=== PATIENT | female | born 1975 | race Caucasian/White ===

== ENCOUNTER 2016-12-20 16:15 | Emergency (ER) | payer BC ==
[~2016-12-20] VITALS: Ht 152.4 cm; Wt 95.8 kg
[~2016-12-20 16:15] MED LIST: CANA1TAB3 PO; GABA-113 PO; GLCSR10 PO; LEVO50TA6 PO; LSN25 PO; METF-384 PO; MULT1TAB79 PO; OMEP20CA9 PO; PRVC/20 PO
[2016-12-20 16:24] VITALS: TEMP 37.5; Ht 152.4 cm; Wt 95.8 kg
[2016-12-20] MEDS ORDERED: REPA1TAB42 PO (17:27)
[2016-12-20] MEDS ORDERED: DULO1CAP39 PO (17:28)
[2016-12-20] MEDS ORDERED: KETOROLAC TROMETHAMINE 30 MG/ML VIAL IV STA (17:42)
[2016-12-20] MEDS ORDERED: ONDANSETRON INJ 2 MG/ML 2 ML VIAL IV STA (17:42)
[2016-12-20] MEDS ORDERED: SODIUM CHLORIDE 0.9% 1000ML 2,000 ML IV STA (17:42)
[2016-12-20] MEDS ORDERED: ALBUTEROL 0.083% NEBU SOLN 3 ML VIAL INH STA (17:54)
--- NOTE | 2016-12-20 18:12 | DIAGNOSTIC IMAGING REPORT ---
CHEST ONE VIEW PORTABLE CLINICAL HISTORY: cough COMPARISON STUDY: 08/26/2016 FINDINGS: The bones soft tissues and hemidiaphragms are normal. The cardiomediastinal silhouette is normal. The lungs are clear. The pulmonary vasculature is normal. IMPRESSION: Negative chest. Electronically signed by: Chuck Nicole M.D. 12/20/2016 6:10 PM Dictated Date/Time: 12/20/2016 6:10 PM
[2016-12-20 18:34] LABS: BASO % 0.3 %; BASO ABS # 0.03 K/uL (0-0.2); COMPLETE YES; EOS % 0.1 %; HEMATOCRIT 34.1 % (37-47); IG% 0.3 %; LYMPH % 19.4 %; LYMPH ABS # 2.07 K/uL (1.2-3.4); MEAN CORPUSCULAR HEMOGLOBIN 29.8 pg (25-34); MEAN CORPUSCULAR HGB CONC 33.4 g/dl (32-36); MEAN PLATELET VOLUME 10.4 fL (7.4-10.4); MONO % 9.7 %; NEUT % 70.2 %; PLATELET COUNT 271 K/uL (130-400); RED BLOOD COUNT 3.83 M/uL (4.2-5.4); WHITE BLOOD COUNT 10.69 K/uL (4.8-10.8)
[2016-12-20 18:53] LABS: BUN/CREATININE RATIO 11.9 (10-20); CALCIUM 8.7 mg/dl (8.5-10.1); CREATININE 0.69 mg/dl (0.60-1.20); POTASSIUM 3.5 mmol/L (3.5-5.1)
[2016-12-20] MEDS ORDERED: DEXAMETHASONE SOD INJ 10 MG/ML VIAL IV ONE (19:30)
--- NOTE | 2016-12-20 20:05 | DIAGNOSTIC IMAGING REPORT ---
SOFT TISSUE NECK TECHNIQUE: AP and lateral soft tissue neck FINDINGS: Mild prominence the adenoids. Hypopharynx is unremarkable. The epiglottis is normal. IMPRESSION: Mild prominence the adenoids. Otherwise negative exam Electronically signed by: Chuck Nicole M.D. 12/20/2016 8:04 PM Dictated Date/Time: 12/20/2016 8:03 PM
[2016-12-20] MEDS ORDERED: AMOXICILLIN/CLAVULANATE TAB 875 MG TAB PO ONE (20:15)
[2016-12-20] MEDS ORDERED: PRED20TA PO (20:17)
[2016-12-20] MEDS ORDERED: AMOX875T PO (20:17)
--- NOTE | 2016-12-20 20:35 | EMERGENCY ROOM VISIT NOTE ---
History Report prepared by Arianna: Fatoumata Cervantes Under the Supervision of: Dr. Sarbjit Lombardi D.O. First contact with patient: 17:29 Chief Complaint: FLU LIKE SX Stated Complaint: FEVER, CHILLS, ACHES, SWOLLEN THROAT, MUCUS, SOB History of Present Illness The patient is a 41 year old female who presents to the Emergency Room with complaints of persistent fever starting a couple days ago. Yesterday, she developed a stuffy nose and congestion. She reports she shivered all night and then soon afterwards began to feel too hot. She is experiencing body aches, rhinorrhea, and sore throat. She notices that her uvula is swollen. She denies any abdominal pain, cough or dysuria. She has recently been in contact with a coworker with bronchitis. She denies any history of asthma, COPD, or smoking. She denies any trouble breathing currently. 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 Source of History: patient Onset: couple days ago Position: other (global) Quality: other (fever) Timing: other (persistent) Associated Symptoms: + chills, + sorethroat, No abdominal pain, No cough, No urinary symptoms Note: Pt reports stuffy nose, congestion, body aches, rhinorrhea. Review of Systems See HPI for pertinent positives & negatives. A total of 10 systems reviewed and were otherwise negative. Past Medical & Surgical Medical Problems: (1) Bronchitis (2) History of - tubal ligation (3) Hypercholesteremia (4) Hypertension (5) Hypothyroidism (6) Type 2 diabetes mellitus (7) Wrist fracture Family History Diabetes mellitus Heart disease Hypertension Kidney disease Kidney stones Social History Smoking Status: Never Smoker Alcohol Use: none Drug Use: none Marital Status: single Housing Status: lives with family Occupation Status: employed Current/Historical Medications Scheduled Amoxicillin & Pot Clavulanate (Augmentin 875-125 mg), 875 MG PO BID Duloxetine HCl (Duloxetine HCl), 1 CAP PO DAILY Gabapentin (Neurontin), 900 MG PO TID Glipizide (Glipizide ER), 10 MG PO DAILY Levothyroxine Sodium (Levothyroxine Sodium), 50 MCG PO DAILY Lisinopril (Lisinopril), 2.5 MG PO DAILY Metformin Hcl (Glucophage), 1,000 MG PO BID Multiple Vitamins W/ Minerals (Womens Daily Formula), 1 TABLET PO DAILY Omeprazole (Prilosec), 20 MG PO BID Pravastatin Sod (Pravastatin Sodium), 20 MG PO QPM Prednisone (Prednisone), 1 TAB PO DAILY Repaglinide (Prandin), 1 MG PO AC Allergies Coded Allergies: No Known Allergies (Unverified , 12/20/16) Physical Exam Vital Signs Date Time Temp Pulse Resp B/P Pulse Ox O2 Delivery O2 Flow Rate FiO2 12/20/16 18:11 104 20 109/75 94 Room Air 12/20/16 16:24 37.5 121 19 145/88 95 Room Air Physical Exam GENERAL: Sitting up, disheveled, no distress, non-toxic EYE EXAM: normal conjunctiva, PERRL and EOM's grossly intact EAR: TMs clear bilaterally. OROPHARYNX: erythema of posterior pharynx, no submandibular swelling, tonsils absent, uvula midline. NECK: supple, no nuchal rigidity, no adenopathy, non-tender. No stridor. LUNGS: Clear to auscultation. Normal chest wall mechanics, sonorous breathing mostly when sleeping. HEART: no murmurs, S1 normal and S2 normal ABDOMEN: abdomen soft, non-tender, normo-active bowel sounds, no masses, no rebound or guarding. BACK: Back is symmetrical on inspection and there is no deformity, no midline tenderness, no CVA tenderness. SKIN: no rashes and no bruising UPPER EXTREMITIES: upper extremities are grossly normal. LOWER EXTREMITIES: No pitting edema. NEURO EXAM: Normal sensorium, cranial nerves II-XII grossly intact, normal speech, no gross weakness of arms, no gross weakness of legs. Medical Decision & Procedures ER Provider Diagnostic Interpretation: Xray results per the radiologist and my interpretation. SOFT TISSUE NECK TECHNIQUE: AP and lateral soft tissue neck FINDINGS: Mild prominence the adenoids. Hypopharynx is unremarkable. The epiglottis is normal. IMPRESSION: Mild prominence the adenoids. Otherwise negative exam Electronically signed by: Chuck Nicole M.D. 12/20/2016 8:04 PM Dictated Date/Time: 12/20/2016 8:03 PM CHEST ONE VIEW PORTABLE CLINICAL HISTORY: cough COMPARISON STUDY: 08/26/2016 FINDINGS: The bones soft tissues and hemidiaphragms are normal. The cardiomediastinal silhouette is normal. The lungs are clear. The pulmonary vasculature is normal. IMPRESSION: Negative chest. Electronically signed by: Chuck Nicole M.D. 12/20/2016 6:10 PM Dictated Date/Time: 12/20/2016 6:10 PM Laboratory Results 12/20/16 18:20 Red Blood Count 3.83, Mean Corpuscular Volume 89.0, Mean Corpuscular Hemoglobin 29.8, Mean Corpuscular Hemoglobin Concent 33.4, Mean Platelet Volume 10.4, Neutrophils (%) (Auto) 70.2, Lymphocytes (%) (Auto) 19.4, Monocytes (%) (Auto) 9.7, Eosinophils (%) (Auto) 0.1, Basophils (%) (Auto) 0.3, Neutrophils # (Auto) 7.51, Lymphocytes # (Auto) 2.07, Monocytes # (Auto) 1.04, Eosinophils # (Auto) 0.01, Basophils # (Auto) 0.03 12/20/16 18:20 Test 12/20/16 18:20 12/20/16 18:24 White Blood Count 10.69 K/uL (4.8-10.8) Red Blood Count 3.83 M/uL (4.2-5.4) Hemoglobin 11.4 g/dL (12.0-16.0) Hematocrit 34.1 % (37-47) Mean Corpuscular Volume 89.0 fL (80-100) Mean Corpuscular Hemoglobin 29.8 pg (25-34) Mean Corpuscular Hemoglobin Concent 33.4 g/dl (32-36) Platelet Count 271 K/uL (130-400) Mean Platelet Volume 10.4 fL (7.4-10.4) Neutrophils (%) (Auto) 70.2 % Lymphocytes (%) (Auto) 19.4 % Monocytes (%) (Auto) 9.7 % Eosinophils (%) (Auto) 0.1 % Basophils (%) (Auto) 0.3 % Neutrophils # (Auto) 7.51 K/uL (1.4-6.5) Lymphocytes # (Auto) 2.07 K/uL (1.2-3.4) Monocytes # (Auto) 1.04 K/uL (0.11-0.59) Eosinophils # (Auto) 0.01 K/uL (0-0.5) Basophils # (Auto) 0.03 K/uL (0-0.2) RDW Standard Deviation 50.8 fL (36.4-46.3) RDW Coefficient of Variation 15.6 % (11.5-14.5) Immature Granulocyte % (Auto) 0.3 % Immature Granulocyte # (Auto) 0.03 K/uL (0.00-0.02) Anion Gap 12.0 mmol/L (3-11) Est Creatinine Clear Calc Drug Dose 108.9 ml/min Estimated GFR () 123.6 Estimated GFR (Non- 106.6 BUN/Creatinine Ratio 11.9 (10-20) Calcium Level 8.7 mg/dl (8.5-10.1) Influenza Type A Antigen Neg for Influ A (NEG) Influenza Type B Antigen Neg for Influ B (NEG) Laboratory results per my review. Medications Administered Medications (Trade) Dose Ordered Sig/Favian Route Start Time Stop Time Status Last Admin Dose Admin Sodium Chloride (Nss 1000ml) 2,000 ml @ 999 mls/hr Q2H1M STAT IV 12/20/16 17:42 12/20/16 19:42 DC 12/20/16 17:42 999 MLS/HR Ketorolac Tromethamine (Toradol Inj) 30 mg NOW STAT IV 12/20/16 17:42 12/20/16 17:46 DC 12/20/16 18:20 30 MG Ondansetron HCl (Zofran Inj) 4 mg NOW STAT IV 12/20/16 17:42 12/20/16 17:46 DC 12/20/16 18:19 4 MG Albuterol Sulfate (Ventolin 0.083% 2.5MG/3ML Neb) 2.5 mg NOW STAT INH 12/20/16 17:54 12/20/16 17:55 DC 12/20/16 18:20 2.5 MG Dexamethasone Sodium Phosphate (Decadron Inj) 10 mg NOW ONCE IV 12/20/16 19:30 12/20/16 19:31 DC 12/20/16 19:57 10 MG ED Course ED COURSE: Vital signs were reviewed and showed tachycardic. The patients medical record was reviewed The above diagnostic studies were performed and reviewed. ED treatments and interventions as stated above. 1734: The patient was evaluated in room C8. A complete history and physical examination was performed. 1741: Zofran Inj 4 mg IV, Toradol Inj 30 mg IV, NSS 2000 ml @ 999 mls/hr IV. 1753: Albuterol Sulfate 2.5 mg INH. 1929: Decadron Inj 10 mg IV. 1931: I reevaluated the patient. She feels better. 2015: Augmentin Tab 875 mg PO. 2018: Upon reevaluation, the patient is feeling better.I discussed my findings with the patient and she understands and agrees with the treatment plan. Based on the patients age, coexisting illnesses, exam and lab findings the decision to treat as an outpatient was made. The patient remained stable while under my care. The patient appeared well at the time of discharge. Medical Decision Differential diagnoses includes but is not limited to pneumonia, bronchitis, COPD/Asthma exacerbation, pneumothorax, pulmonary embolism, congestive heart failure, acute coronary syndrome Patient is a 41-year-old female who presents the ER for sinus congestion associated with sore throat, postnasal drip and feeling hot and cold. Sick contacts include a coworker with similar symptoms. Patient has no recorded fevers but does admit to feeling hot and cold. On exam she is well-appearing. She is slightly tachycardic. She has sonorous breathing but no stridor with a history of tracheal narrowing following surgery. She is otherwise well- appearing. She is given neb treatment and notes that she is able to cough up much more phlegm at this time. She is also given steroids and Augmentin for bronchitis. She is given steroids to prevent any possible tracheal edema. I gave her dose 20 mg upon discharge as she is a diabetic. Labs show no significant leukocytosis or anemia. BMP was unremarkable. Influenza A and B were negative. Chest x-ray shows no focal infiltrate. Soft tissue of the neck shows no narrowing/epiglottitis. Patient was feeling significantly better. She was offered observation with her history of previous tracheal narrowing but she preferred to be sleeping in her bed. She is discharged with steroids and Augmentin. Discussed with Pt concerning signs and symptoms to watch out for. Pt was instructed to follow up with their PCP and discussed with the patient their option to return to the ED at anytime for persistent or worsening symptoms. The appropriate anticipatory guidance and out-patient management, including indications for return to the emergency department, were explained at length to the patient and understood. Impression Primary Impression: Acute bronchitis Additional Impression: Upper respiratory infection Scribe Attestation The scribe's documentation has been prepared under my direction and personally reviewed by me in its entirety. I confirm that the note above accurately reflects all work, treatment, procedures, and medical decision making performed by me. Departure Information Dispostion Home / Self-Care Prescriptions Prednisone (Prednisone) 20 Mg Tab 1 TAB PO DAILY for 5 Days, #5 TAB Prov: Sarbjit Lombardi, DO 12/20/16 Amoxicillin & Pot Clavulanate (Augmentin 875-125 mg) 1 Tab Tab 875 MG PO BID for 7 Days, TAB Prov: Sarbjit Lombardi, DO 12/20/16 Referrals Gricelda Ochoa D.O. (PCP) Forms HOME CARE DOCUMENTATION FORM, IMPORTANT VISIT INFORMATION Patient Instructions Bronchitis Acute, My [facility] Additional Instructions Please follow up with your primary care doctor with in the next 24 hours. Any worsening of your symptoms, please return to the ED immediately. This includes fevers greater than 100.4, trouble breathing, short of breath, passing out, stridor/loud noises when breathing in, or any other concerning signs or symptoms from your standpoint. Please take antibiotics and steroids as prescribed. Problem Qualifiers Primary Impression: Acute bronchitis Bronchitis organism: unspecified organism Qualified Codes: J20.9 - Acute bronchitis, unspecified Additional Impression: Upper respiratory infection URI type: acute pharyngitis Pharyngitis/tonsillitis etiology: unspecified etiology Qualified Codes: J02.9 - Acute pharyngitis, unspecified
[2016-12-20 21:26] VITALS: BP 115/68; PULSE 100; O2SAT 95
[2017-03-06] MEDS ORDERED: OMEG10007 PO (11:26)
[2017-03-06] MEDS ORDERED: CANA1TAB3 PO (11:26)
[2017-03-06] MEDS ORDERED: CYAN1TAB18 PO (11:26)
[2017-03-06] MEDS ORDERED: BIOT1CAP8 PO (11:26)
[2017-03-06] MEDS ORDERED: FERR325T18 PO (11:26)
[2017-03-06] MEDS ORDERED: FLUT0.15 NAE (11:26)
[2017-03-14] MEDS ORDERED: OXYC-57 PO (07:05)
== END 2016-12-20 21:27 | disposition home or self-care (01) ==
LOC: C.EDB 16:17 → C.EDC 21:27
DX: J20.9 Acute bronchitis, unspecified (principal); J02.9 Acute pharyngitis, unspecified; E78.00 Pure hypercholesterolemia, unspecified; I10 Essential (primary) hypertension; E03.9 Hypothyroidism, unspecified; E11.9 Type 2 diabetes mellitus without complications; Z83.3 Family history of diabetes mellitus; Z82.49 Family history of ischemic heart disease and other diseases of the circulatory system; Z84.1 Family history of disorders of kidney and ureter; Z79.899 Other long term (current) drug therapy

== ENCOUNTER 2016-12-22 12:37 | Emergency (ER) | payer BC ==
[~2016-12-22] VITALS: Ht 152.4 cm; Wt 96.6 kg
[~2016-12-22 12:37] MED LIST changes: +AMOX875T PO; -CANA1TAB3 PO; +DULO1CAP39 PO; +PRED20TA PO; +REPA1TAB42 PO
[2016-12-22 12:38] VITALS: Ht 152.4 cm; Wt 96.6 kg
[2016-12-22] MEDS ORDERED: ALBUT/IPRATROP 3MG/0.5MG NEB 3 ML VIAL INH STA (13:37)
--- NOTE | 2016-12-22 13:51 | DIAGNOSTIC IMAGING REPORT ---
CHEST ONE VIEW PORTABLE CLINICAL HISTORY: SOB dyspnea COMPARISON STUDY: 12/20/2016 FINDINGS: The bones soft tissues and hemidiaphragms are normal. The cardiomediastinal silhouette is normal. The lungs are clear. The pulmonary vasculature is normal. IMPRESSION: Negative chest. Electronically signed by: Chuck Nicole M.D. 12/22/2016 1:50 PM Dictated Date/Time: 12/22/2016 1:49 PM
[2016-12-22 14:07] LABS: BASO % 0.2 %; BASO ABS # 0.03 K/uL (0-0.2); COMPLETE YES; EOS % 0.2 %; HEMATOCRIT 35.4 % (37-47); IG% 0.7 %; LYMPH % 14.4 %; LYMPH ABS # 2.18 K/uL (1.2-3.4); MEAN CELL VOLUME 91.7 fL (80-100); MEAN CORPUSCULAR HEMOGLOBIN 29.5 pg (25-34); MEAN CORPUSCULAR HGB CONC 32.2 g/dl (32-36); MEAN PLATELET VOLUME 10.1 fL (7.4-10.4); NEUT % 78.5 %; PLATELET COUNT 337 K/uL (130-400); RED BLOOD COUNT 3.86 M/uL (4.2-5.4); WHITE BLOOD COUNT 15.17 K/uL (4.8-10.8)
[2016-12-22] MEDS ORDERED: ALBUTEROL HFA 8 GM INHALER INH ONE (14:15)
[2016-12-22] MEDS ORDERED: ALBUT/IPRATROP 3MG/0.5MG NEB 3 ML VIAL INH ONE (14:15)
[2016-12-22 14:22] LABS: INR 0.9 (0.9-1.1); PARTIAL THROMBOPLASTIN RATIO 0.9; PROTHROMBIN TIME (PATIENT) 9.9 SECONDS (9.0-12.0)
[2016-12-22 14:58] LABS: ALB/GLOB RATIO 0.7 (0.9-2); BUN/CREATININE RATIO 30.8 (10-20); CALCIUM 9.7 mg/dl (8.5-10.1); CREATININE 0.62 mg/dl (0.60-1.20)
[2016-12-22 15:01] VITALS: PULSE 96; O2SAT 96
[2016-12-22 15:18] VITALS: TEMP 36.9
--- NOTE | 2016-12-22 16:04 | EMERGENCY ROOM VISIT NOTE ---
History Report prepared by Arianna: Wilma Vieyra Under the Supervision of: Dr. Gunner Grimaldo D.O. First contact with patient: 14:08 Chief Complaint: RESPIRATORY PROBLEMS Stated Complaint: DIFFICULTY BREATHING Nursing Triage Summary: Patient states "I was here on Friday night and was diagnosed with bronchitis. I am having trouble breathing so I came back." History of Present Illness The patient is a 41 year old female who presents to the Emergency Room with complaints of worsening respiratory troubles beginning this morning. The patient states that she was in the ED 2 days ago and diagnosed with bronchitis and sent home with Amoxicillin and Prednisone. She notes that she felt better yesterday but this morning woke up with worsening symptoms. She also notes she is experiencing rhinorrhea, cough and congestion. The patient denies a history of asthma or using an inhaler at home. Source of History: patient Onset: this morning Position: other (global) Quality: other (respiratory troubles) Timing: worsening Associated Symptoms: + cough Note: Patient is experiencing rhinorrhea and congestion. Review of Systems See HPI for pertinent positives & negatives. A total of 10 systems reviewed and were otherwise negative. Past Medical & Surgical Medical Problems: (1) Bronchitis (2) History of - tubal ligation (3) Hypercholesteremia (4) Hypertension (5) Hypothyroidism (6) Type 2 diabetes mellitus (7) Wrist fracture Family History Diabetes mellitus Heart disease Hypertension Kidney disease Kidney stones Social History Smoking Status: Former Smoker Alcohol Use: none Drug Use: none Marital Status: single Housing Status: lives with family Occupation Status: employed Current/Historical Medications Scheduled Amoxicillin & Pot Clavulanate (Augmentin 875-125 mg), 875 MG PO BID Duloxetine HCl (Duloxetine HCl), 1 CAP PO DAILY Gabapentin (Neurontin), 900 MG PO TID Glipizide (Glipizide ER), 10 MG PO DAILY Levothyroxine Sodium (Levothyroxine Sodium), 50 MCG PO DAILY Lisinopril (Lisinopril), 2.5 MG PO DAILY Metformin Hcl (Glucophage), 1,000 MG PO BID Multiple Vitamins W/ Minerals (Womens Daily Formula), 1 TABLET PO DAILY Omeprazole (Prilosec), 20 MG PO BID Pravastatin Sod (Pravastatin Sodium), 20 MG PO QPM Prednisone (Prednisone), 1 TAB PO DAILY Repaglinide (Prandin), 1 MG PO AC Allergies Coded Allergies: No Known Allergies (Unverified , 12/20/16) Physical Exam Vital Signs Date Time Temp Pulse Resp B/P Pulse Ox O2 Delivery O2 Flow Rate FiO2 12/22/16 15:42 136 21 143/83 96 Room Air 12/22/16 15:19 118 12/22/16 15:18 36.9 119 20 148/93 100 Mask 7.0 Nebulizer 12/22/16 15:16 119 20 148/93 100 Mask 7.0 Nebulizer 12/22/16 15:01 96 16 96 Room Air 12/22/16 14:00 91 18 145/78 96 Room Air 12/22/16 12:41 96 Room Air 12/22/16 12:38 36.9 96 18 144/85 96 Room Air Physical Exam CONSTITUTIONAL/VITAL SIGNS: Reviewed / noted above. GENERAL: Non-toxic in appearance. INTEGUMENTARY: Warm, dry, and [place]. HEAD: Normocephalic. EYES: without scleral icterus or trauma. ENT/OROPHARYNX: Clear rhinorrhea and nasal congestion. LYMPHADENOPATHY/NECK: Is supple without lymphadenopathy or meningismus. RESPIRATORY: Expiratory wheezing. CARDIOVASCULAR: Regular rate and rhythm. GI/ABDOMEN: Soft and nontender. No organomegaly or pulsatile mass. No rebound or guarding. Normal bowel sounds. EXTREMITIES: Warm and well perfused. BACK: No CVA tenderness. NEUROLOGICAL: Intact without focal deficits. PSYCHIATRIC: normal affect. MUSCULOSKELETAL: Normally developed with good muscle tone. Medical Decision & Procedures ER Provider Diagnostic Interpretation: X ray results and stated below per my interpretation and radiology interpretation. CHEST ONE VIEW PORTABLE CLINICAL HISTORY: SOB dyspnea COMPARISON STUDY: 12/20/2016 FINDINGS: The bones soft tissues and hemidiaphragms are normal. The cardiomediastinal silhouette is normal. The lungs are clear. The pulmonary vasculature is normal. IMPRESSION: Negative chest. Electronically signed by: Chuck Nicole M.D. 12/22/2016 1:50 PM Dictated Date/Time: 12/22/2016 1:49 PM Laboratory Results 12/22/16 13:55 Red Blood Count 3.86, Mean Corpuscular Volume 91.7, Mean Corpuscular Hemoglobin 29.5, Mean Corpuscular Hemoglobin Concent 32.2, Mean Platelet Volume 10.1, Neutrophils (%) (Auto) 78.5, Lymphocytes (%) (Auto) 14.4, Monocytes (%) (Auto) 6.0, Eosinophils (%) (Auto) 0.2, Basophils (%) (Auto) 0.2, Neutrophils # (Auto) 11.91, Lymphocytes # (Auto) 2.18, Monocytes # (Auto) 0.91, Eosinophils # (Auto) 0.03, Basophils # (Auto) 0.03 12/22/16 13:55 Test 12/22/16 13:55 12/22/16 14:01 White Blood Count 15.17 K/uL (4.8-10.8) Red Blood Count 3.86 M/uL (4.2-5.4) Hemoglobin 11.4 g/dL (12.0-16.0) Hematocrit 35.4 % (37-47) Mean Corpuscular Volume 91.7 fL (80-100) Mean Corpuscular Hemoglobin 29.5 pg (25-34) Mean Corpuscular Hemoglobin Concent 32.2 g/dl (32-36) Platelet Count 337 K/uL (130-400) Mean Platelet Volume 10.1 fL (7.4-10.4) Neutrophils (%) (Auto) 78.5 % Lymphocytes (%) (Auto) 14.4 % Monocytes (%) (Auto) 6.0 % Eosinophils (%) (Auto) 0.2 % Basophils (%) (Auto) 0.2 % Neutrophils # (Auto) 11.91 K/uL (1.4-6.5) Lymphocytes # (Auto) 2.18 K/uL (1.2-3.4) Monocytes # (Auto) 0.91 K/uL (0.11-0.59) Eosinophils # (Auto) 0.03 K/uL (0-0.5) Basophils # (Auto) 0.03 K/uL (0-0.2) RDW Standard Deviation 53.8 fL (36.4-46.3) RDW Coefficient of Variation 16.0 % (11.5-14.5) Immature Granulocyte % (Auto) 0.7 % Immature Granulocyte # (Auto) 0.11 K/uL (0.00-0.02) Prothrombin Time 9.9 SECONDS (9.0-12.0) Prothromb Time International Ratio 0.9 (0.9-1.1) Activated Partial Thromboplast Time 24.3 SECONDS (21.0-31.0) Partial Thromboplastin Ratio 0.9 Anion Gap 11.0 mmol/L (3-11) Est Creatinine Clear Calc Drug Dose 121.8 ml/min Estimated GFR () 128.0 Estimated GFR (Non- 110.4 BUN/Creatinine Ratio 30.8 (10-20) Calcium Level 9.7 mg/dl (8.5-10.1) Total Bilirubin 0.1 mg/dl (0.2-1) Aspartate Amino Transf (AST/SGOT) 12 U/L (15-37) Alanine Aminotransferase (ALT/SGPT) 34 U/L (12-78) Alkaline Phosphatase 64 U/L (45-117) Total Protein 7.8 gm/dl (6.4-8.2) Albumin 3.1 gm/dl (3.4-5.0) Globulin 4.7 gm/dl (2.5-4.0) Albumin/Globulin Ratio 0.7 (0.9-2) Bedside Troponin I 0.000 ng/ml (0-0.045) Laboratory results as stated above per my review. Medications Administered Medications (Trade) Dose Ordered Sig/Favian Route Start Time Stop Time Status Last Admin Dose Admin Albuterol/ Ipratropium (Duoneb) 3 ml NOW STAT INH 12/22/16 13:37 12/22/16 13:40 DC 12/22/16 13:48 3 ML Albuterol/ Ipratropium (Duoneb) 12 ml ONE ONCE INH 12/22/16 14:15 12/22/16 14:17 DC 12/22/16 14:15 12 ML ECG Indication: SOB/dyspnea Rate (beats per minute): 95 Rhythm: normal sinus Findings: no acute ischemic change, no ectopy ED Course 1337: Duoneb 3 ml INH. 1409: Previous medical records were reviewed. The patient was evaluated in room C10. A complete history and physical examination was performed. 1415: Ventolin Hfa Inhaler 2 puffs INH, Duoneb 12 ml INH. 1402: On reevaluation, the patient is hemodynamically stable. I discussed the results and findings with the patient. She verbalized agreement of the treatment plan. She was discharged home. Medical Decision the differential was considered includes acute myocardial infarction, acute coronary syndrome, myocarditis, pericarditis, pericardial effusions /tamponad, esophageal perforation, pulmonary embolism, pneumonia, pneumothorax, cardiomyopathy, congestive heart, anemia , COPD/asthma exacerbation. This is a 41-year-old female who presents to the ED with a chief complaint shortness of breath. The patient was seen here several days ago and diagnosed with bronchitis. She has been placed on prednisone as well as amoxicillin. The patient does not have nebulizers or inhalers at home. Her vital signs are normal. Her physical exam reveals moist for wheezing. She does have clear rhinorrhea and a cough as well. Chest x-ray was negative for acute disease. White blood cell count was 15 and likely related to steroids. EKG showed normal sinus rhythm. Troponin was negative. The patient was treated with a one hour nebulizer treatment here. She was also provided with an MDI. She was tachycardic at time of disposition because of the treatment. She is felt to be stable for discharge. She will continue her antibiotic and steroids. Inhaler was added. Impression Primary Impression: Acute bronchitis Scribe Attestation The scribe's documentation has been prepared under my direction and personally reviewed by me in its entirety. I confirm that the note above accurately reflects all work, treatment, procedures, and medical decision making performed by me. Departure Information Dispostion Home / Self-Care Referrals Gricelda Ochoa D.O. (PCP) Forms HOME CARE DOCUMENTATION FORM, IMPORTANT VISIT INFORMATION, WORK / SCHOOL INSTRUCTIONS Patient Instructions My [facility] Additional Instructions Continue your antibiotic and steroids. Use the albuterol inhaler, 2 puffs every 2-4 hours as needed for wheezing or cough. Return for worsening or other concerns. Follow-up with your doctor for recheck in 3-5 days if symptoms persist.
[2016-12-22 16:43] VITALS: BP 134/72; PULSE 128; O2SAT 93
[2017-03-06] MEDS ORDERED: FERR325T18 PO (11:26)
[2017-03-06] MEDS ORDERED: OMEG10007 PO (11:26)
[2017-03-06] MEDS ORDERED: CANA1TAB3 PO (11:26)
[2017-03-06] MEDS ORDERED: FLUT0.15 NAE (11:26)
[2017-03-06] MEDS ORDERED: BIOT1CAP8 PO (11:26)
[2017-03-06] MEDS ORDERED: CYAN1TAB18 PO (11:26)
[2017-03-14] MEDS ORDERED: OXYC-57 PO (07:05)
== END 2016-12-22 17:07 | disposition home or self-care (01) ==
LOC: C.EDB 12:37 → C.EDC 17:07
DX: J20.9 Acute bronchitis, unspecified (principal); I10 Essential (primary) hypertension; E11.9 Type 2 diabetes mellitus without complications; E03.9 Hypothyroidism, unspecified; E78.00 Pure hypercholesterolemia, unspecified; Z87.891 Personal history of nicotine dependence; Z79.84 Long term (current) use of oral hypoglycemic drugs; Z79.899 Other long term (current) drug therapy; Z83.3 Family history of diabetes mellitus; Z82.49 Family history of ischemic heart disease and other diseases of the circulatory system; Z84.1 Family history of disorders of kidney and ureter

== ENCOUNTER → 2017-03-14 | Day surgery (SDC) | payer BC ==
[2017-03-06 11:29] VITALS: BMI 41.0
--- NOTE | 2017-03-06 12:09 | PAT Medication Instructions ---
Service Date Mar 06, 2017. Current Home Medication List Biotin (Biotin), 1 MG PO QAM Canagliflozin (Invokana), 300 MG PO QAM Cyanocobalamin (B-12), 1,000 MCG PO QAM Duloxetine HCl (Duloxetine HCl), 1 CAP PO HS Ferrous Gluconate (Ferrous Gluconate), 324 MG PO BID Fish Oil (Holly-3), 1 CAP PO HS Fluticasone Propionate (Nasal) (Flonase Allergy Relief), 2 SPRAYS [place] PRN Gabapentin (Neurontin), 900 MG PO TID Glipizide (Glipizide ER), 10 MG PO QAM Levothyroxine Sodium (Levothyroxine Sodium), 50 MCG PO QAM Lisinopril (Lisinopril), 2.5 MG PO QAM Metformin Hcl (Glucophage), 1,000 MG PO BID Multiple Vitamins W/ Minerals (Womens Daily Formula), 1 TABLET PO HS Omeprazole (Prilosec), 20 MG PO BID Pravastatin Sod (Pravastatin Sodium), 20 MG PO QPM Repaglinide (Prandin), 1 MG PO AC Medication Instructions For Your Scheduled Surgery - Hold the following medications starting today 03/06/17: Biotin (Biotin), 1 MG PO QAM Fish Oil (Holly-3), 1 CAP PO HS - Hold the following medications 48 hours prior to surgery: Metformin Hcl (Glucophage), 1,000 MG PO BID - Hold the following medications the morning of surgery: Repaglinide (Prandin), 1 MG PO AC Lisinopril (Lisinopril), 2.5 MG PO QAM Glipizide (Glipizide ER), 10 MG PO QAM Ferrous Gluconate (Ferrous Gluconate), 324 MG PO BID Canagliflozin (Invokana), 300 MG PO QAM Cyanocobalamin (B-12), 1,000 MCG PO QAM - Take the following medications the morning of surgery with a sip of water: Omeprazole (Prilosec), 20 MG PO BID Levothyroxine Sodium (Levothyroxine Sodium), 50 MCG PO QAM Gabapentin (Neurontin), 900 MG PO TID Fluticasone Propionate (Nasal) (Flonase Allergy Relief), 2 SPRAYS [place] PRN - Take the following medications as scheduled the night before surgery: Pravastatin Sod (Pravastatin Sodium), 20 MG PO QPM Omeprazole (Prilosec), 20 MG PO BID Multiple Vitamins W/ Minerals (Womens Daily Formula), 1 TABLET PO HS Gabapentin (Neurontin), 900 MG PO TID Duloxetine HCl (Duloxetine HCl), 1 CAP PO HS Ferrous Gluconate (Ferrous Gluconate), 324 MG PO BID If you have any questions please call us at [phone] or [phone] ( Cheryl) or [phone]
[2017-03-06 12:31] LABS: BASO % 0.2 %; BASO ABS # 0.02 K/uL (0-0.2); COMPLETE YES; HEMATOCRIT 40.3 % (37-47); IG% 0.8 %; LYMPH % 35.4 %; LYMPH ABS # 3.75 K/uL (1.2-3.4); MEAN CELL VOLUME 94.6 fL (80-100); MEAN CORPUSCULAR HEMOGLOBIN 30.3 pg (25-34); MEAN PLATELET VOLUME 10.4 fL (7.4-10.4); MONO % 5.3 %; NEUT % 57.3 %; PLATELET COUNT 333 K/uL (130-400); RED BLOOD COUNT 4.26 M/uL (4.2-5.4)
--- NOTE | 2017-03-06 12:40 | DIAGNOSTIC IMAGING REPORT ---
TWO VIEW CHEST CLINICAL HISTORY: Preoperative examination. FINDINGS: PA and lateral chest radiographs are compared to study dated 12/22/2016 and correlated with chest CT dated 06/11/2013. The examination is degraded by large body habitus. The cardiomediastinal silhouette is unremarkable. There is mild elevation of the right hemidiaphragm and bibasilar atelectasis. The lungs and pleural spaces are otherwise clear. There is no pneumothorax. The bony thorax appears intact. Degenerative change is noted in the thoracic spine. IMPRESSION: No active disease in the chest. Electronically signed by: Stevo Roman M.D. 03/06/2017 12:38 PM Dictated Date/Time: 03/06/2017 12:37 PM
[2017-03-06 12:43] LABS: INR 0.9 (0.9-1.1)
[2017-03-06 12:47] LABS: BUN/CREATININE RATIO 27.6 (10-20); CALCIUM 9.4 mg/dl (8.5-10.1); CREATININE 0.6 mg/dl (0.60-1.20); POTASSIUM 4.3 mmol/L (3.5-5.1)
--- NOTE | 2017-03-06 16:10 | HISTORY & PHYSICAL EXAMINATION ---
DATE OF ADMISSION: 03/14/2017 SUBJECTIVE AND CHIEF COMPLAINT: Left shoulder pain. HISTORY OF PRESENT ILLNESS: The patient is a 42-year-old female who complains of left shoulder pain. She presents with pain and decreased range of motion on her left side. She states that the symptoms have been chronic and nontraumatic. She describes the pain as aching and sharp. They occur continuously. The patient is scheduled for manipulation under anesthesia with injection for the left shoulder. PAST MEDICAL HISTORY: Significant for hypercholesterolemia, shortness of breath due to partial thyroidectomy, non-insulin dependent diabetes, hypothyroidism, and GERD. PAST SURGICAL HISTORY: Partial thyroidectomy, tubal ligation and right wrist surgery. SOCIAL HISTORY: She denies alcohol use. She denies smoking or tobacco use. She denies IV drug use. She lives in a 2-song house. She currently works at [employer]. FAMILY HISTORY: Noncontributory. ALLERGIES: No known drug allergies. MEDICATIONS: Invokana 300 mg once a day, Glipizide 10 mg once a day, Pravastatin 20 mg once a day, Biotin 1 mg b.i.d., Repaglinide 1 mg once a day, Cymbalta 300 mg once a day, Prilosec 20 mg twice a day, metformin 1000 mg twice a day, ferrous gluconate 324 mg twice a day, vitamin B12 once a day, omega 3 once a day, levothyroxine 50 mcg 1 tablet once a day, Flonase as needed, Neurontin 900 mg 3 times a day, and Lisinopril 2.5 mg daily. REVIEW OF SYSTEMS: She denies headaches, fevers, chills, double vision, blurry vision, sore throat, cough, chest pain, nausea, vomiting, diarrhea, constipation, numbness, tingling, tiredness, difficulty going to the bathroom, thoughts to harm herself, harm others or depression. She is positive for joint pain of the left shoulder and joint stiffness of the left shoulder. OBJECTIVE: GENERAL APPEARANCE: The patient is a 42-year-old female who is sitting in no acute distress. She is well dressed, well nourished. She is awake, alert and oriented x3. VITAL SIGNS: She is 5 feet tall. She weighs 212 pounds, blood pressure is 120/64. HEENT: Atraumatic, normocephalic. Extraocular movements are intact. PERRLA. Mucosa was moist. No septal deviation. NECK: Supple, no lymphadenopathy, no JVD, no thyromegaly. HEART: Regular rate and rhythm with no murmurs or gallops. LUNGS: Clear to auscultation. Audible wheeze is appreciated on exam, but this is due to her thyroid removal. ABDOMEN: Soft, nontender, nondistended. Normal bowel sounds, no hepatosplenomegaly. EXTREMITIES: Paying particular attention to the left upper extremity, she is able to actively flex to 100 degrees, abduct to 90 degrees, and externally rotate to 40 degrees. She has diffuse tenderness throughout the shoulder joint. NEUROLOGIC: Cranial nerves II-XII are intact. Pulses were compared bilaterally and were equal. IMPRESSION: Left shoulder adhesive capsulitis. PLAN: The patient is scheduled for a manipulation under anesthesia with injection of the left shoulder. She has failed conservative measures including injection and physical therapy. She has decreased range of motion and decreased strength. She would like to proceed with a manipulation under anesthesia with intraarticular injection of the left shoulder. Risks and benefits were discussed and included but not limited to infection, DVT, pain, stiffness, need for another manipulation, failure to relieve all symptoms, progressive arthritis, damage to blood vessels, damage to nerves, and anesthesia risks. The patient understands and would like to proceed with the procedure. All questions were answered to her satisfaction. ALEXANDRO
[~2017-03-14] VITALS: Ht 152.4 cm; Wt 96.3 kg
[~2017-03-14] MED LIST changes: -AMOX875T PO; +ATOR-22 PO; +BIOT1CAP8 PO; +BUPIVACAINE 0.5 % 5 MG/1 ML MPF 30ML VIAL ONE; +BUPIVACAINE 0.5 % 5 MG/1 ML PF 10ML VIAL ONE; +CANA1TAB3 PO; +CYAN1TAB18 PO; +DEXAMETHASONE SOD INJ 4 MG/ML VIAL ONE; +FENTANYL CITRATE INJ 50 MCG/1 ML 2 ML VIAL ONE; +FERR325T18 PO; +FLUT0.15 NAE; +IBUPROFEN 200 MG TAB PO PRN; +LACTATED RINGER'S 1000ML 1,000 ML IV PRN; +LACTATED RINGER'S 1000ML 1,000 ML IV SCH; +LIDOCAINE HCL 2% 2 ML VIAL (20MG/ML) ONE; +METHYLPREDNISOLONE ACETATE 80 MG/ML VIAL ONE; +MIDAZOLAM HCL 1 MG/ML 2ML VIAL ONE; +NORT10CA2 PO; +NURSING VERBAL MED ORDER ONE; +NovoLIN-R INSULIN PER UNIT CHARGE ONE; +OMEG10007 PO; +ONDANSETRON INJ 2 MG/ML 2 ML VIAL IV PRN; +ONDANSETRON INJ 2 MG/ML 2 ML VIAL ONE; +OXYC-57 PO; +OXYCODONE/ACETAMINOPHEN 5-325 TAB PO PRN; -PRED20TA PO; +REPA1TAB40 PO; -REPA1TAB42 PO
[2017-03-14 05:46] VITALS: BP 122/76; PULSE 94; TEMP 36.8; O2SAT 97; Ht 152.4 cm; Wt 96.3 kg
--- NOTE | 2017-03-14 06:33 | History & Physical Bridge Note ---
H&P Re-Evaluation Bridge Note: I have examined the patient, reviewed the History & Physical and in the interval since the performance of the History & Physical I have noted the following changes of clinical significance: No changes noted
--- NOTE | 2017-03-14 07:11 | Discharge Instructions ---
Discharge Instructions Date of Service Mar 14, 2017. Admission Reason for Admission: Left Shoulder Pain Discharge Discharge Diagnosis / Problem: Left shoulder Manipulation under Anesthesia with intra-articular injection Discharge Goals Goal(s): Decrease discomfort, Improve function Activity Recommendations Activity Limitations: per Instructions/Follow-up section . Instructions / Follow-Up Instructions / Follow-Up U DISCHARGE INSTRUCTIONS: Shoulder Manipulation under anesthesia with intra-articular injection SELF CARE INSTRUCTIONS AFTER: A. You are allowed to use your arm actively as comfort allows. B. You should start Physical Therapy within 1-3 days from your surgery. You will be provided a prescription with specific restrictions, if needed, at time of discharge. Make sure to perform exercises at home as instructed by Physical Therapy. C. At 48 hours post-operatively, you may change your dressing. Use band-aids and change daily. D. You may use ice as needed to operative shoulder SPECIAL CARE INSTRUCTIONS: VERY IMPORTANT TO READ AND REVIEW A. There are a few signs you need to watch for after you are home. Call [facility] at [phone] if you experience any of the following: a. Increased severe shoulder pain. Some pain is expected especially when you exercise b. Increased swelling in your shoulder or arm; pain or swelling in either upper extremity. (Note: swelling and stiffness is normal and expected for several weeks post op, depending on type of shoulder surgery you had). c. Any fluid or drainage from the incision; redness of the incision. d. Shortness of breath or chest pain. B. Please call [facility] at [phone] if you have any questions or concerns about your operation or recovery. C. Call your physician if: a. Temperature is greater than 101 degrees (F). b. Pain is not relieved by prescribed pain medications. c. Increase drainage or redness from incision. d. Unanswered questions or concerns. D. Pain Medication: a. You will be prescribed pain medication upon discharge that should last till your first post-operative appointment. b. You may also take Advil or Ibuprofen between medication doses if you do not have any contraindication to taking them. c. You may also take Advil or Ibuprofen in place of your pain medication if the pain is tolerable. d. If you experience nausea and/or skin rash, discontinue this medication and contact our office for an alternative medication. e. Caution- narcotic pain medication can cause constipation. FOLLOW UP VISIT: Please call [facility] at [phone] to schedule a follow up appointment 10-14 days from your surgery date. Current Hospital Diet Patient's current hospital diet: Regular Diet Discharge Diet Recommended Diet: Diabetes Type 2 Diet Pending Studies Studies pending at discharge: no Medical Emergencies . Who to Call and When: Medical Emergencies: If at any time you feel your situation is an emergency, please call 911 immediately. . Non-Emergent Contact Non-Emergency issues call your: Surgeon Call Non-Emergent contact if: temperature is above 101.5, your pain is worsening . "Provider Documentation" section prepared by Pantera Henry. . VTE Core Measure Inpt VTE Proph given/why not?: Treatment not indicated [place] Drug Monitoring Program Search Results: patient reviewed within database, no issues identified
--- NOTE | 2017-03-14 07:34 | [facility] Post Operative Brief Note ---
Immediate Operative Summary Operative Date Mar 14, 2017. Pre-Operative Diagnosis Left Shoulder Adhesive Capsulitis Post-Operative Diagnosis Left Shoulder Adhesive Capsulitis Procedure(s) Performed Left Shoulder Manipulation Under Anesthesia; Steriod Injection Surgeon Dr. Geoffrey Heath Toll Booth Operator Surgeon(s) None Estimated Blood Loss 0mL Findings above Specimens None Drains 0 Anesthesia interscalene Complication(s) None Disposition Recovery Room / PACU
--- NOTE | 2017-03-14 07:42 | OPERATIVE REPORT ---
DATE OF OPERATION: 03/14/2017 PREOPERATIVE DIAGNOSIS: Left shoulder adhesive capsulitis. POSTOPERATIVE DIAGNOSIS: Same. PROCEDURE: Left shoulder manipulation under anesthesia and intraarticular injection. SURGEON: Dr. Heath. FUNDING ANALYST: None. ANESTHESIA: Interscalene block. SPECIMENS: None. COMPLICATIONS: None. ESTIMATED BLOOD LOSS: None. INDICATIONS: The patient is a 42-year-old female who developed adhesive capsulitis of the left shoulder. She has failed conservative measures including physical therapy, anti-inflammatories. She wished to proceed with manipulation under anesthesia. Risks, benefits, alternatives to surgery including but not limited to, pain, stiffness, need for revision procedure, failure to relieve all symptoms, damage to blood vessels, damage to nerves, risks of anesthesia were discussed with the patient and she wished to proceed. OPERATION AND FINDINGS: PROCEDURE: The patient was identified, laterality was confirmed and marked. She received an interscalene block. Under sterile conditions, I injected the glenohumeral joint with 2 mL of Depo-Medrol and 3 mL of Marcaine. I then performed a gentle manipulation under anesthesia encountering resistance at about 120 degrees of forward flexion. There was audible and palpable release of the soft tissues. I was able to bring her through full range of motion. She tolerated the procedure well and was transferred to the PACU in stable condition without apparent complication. I attest to the content of the Intraoperative Record and any orders documented therein. Any exception s are noted below.
--- NOTE | 2017-03-14 08:05 | Anesthesiology Progress Note ---
Anesthesia Post Op Note Date & Time Mar 14, 2017 at 08:04 Vital Signs Pain Intensity: 0 Vital Signs Past 12 Hours Date Time Temp Pulse Resp B/P (MAP) Pulse Ox O2 Delivery O2 Flow Rate FiO2 03/14/17 07:50 101 16 105/56 (97) 96 Room Air 03/14/17 07:40 97 16 111/68 (81) 93 Room Air 03/14/17 07:34 97 16 120/59 (82) 93 Room Air 03/14/17 07:22 36.8 103 16 111/72 (82) 98 Mask 8 03/14/17 05:46 36.8 94 22 122/76 (91) 97 Room Air Notes Mental Status: alert / awake / arousable, participated in evaluation Pt Amnestic to Procedure: No (recall as expected) Nausea / Vomiting: adequately controlled Pain: adequately controlled Airway Patency, RR, SpO2: stable & adequate BP & HR: stable & adequate Hydration State: stable & adequate Anesthetic Complications: no major complications apparent Pt doing well. No pain. Pre-op glucose 295. Gave 10 units regular insulin SQ. Glucose now 214.
[2017-03-14 08:15] VITALS: BP 109/56; PULSE 94; TEMP 36.7; O2SAT 93
[2017-03-14 08:45] VITALS: BP 122/60; PULSE 95; TEMP 36.7; O2SAT 95
[2017-03-14 09:18] VITALS: BP_SYST 120; PULSE 93; TEMP 36.6; O2SAT 95
== END | disposition home or self-care (01) ==
LOC: C.ACU 05:14
PROVIDERS: ATTEND Orthopaedic Surgery
DX: M75.02 Adhesive capsulitis of left shoulder (principal); E78.00 Pure hypercholesterolemia, unspecified; E11.9 Type 2 diabetes mellitus without complications; K21.9 Gastro-esophageal reflux disease without esophagitis; E89.0 Postprocedural hypothyroidism; Z79.899 Other long term (current) drug therapy

== ENCOUNTER 2017-07-21 08:25 | Emergency (ER) | payer BC ==
[~2017-07-21] VITALS: Ht 152.4 cm; Wt 95.4 kg
[~2017-07-21 08:25] MED LIST changes: -ATOR-22 PO; -BUPIVACAINE 0.5 % 5 MG/1 ML MPF 30ML VIAL ONE; -BUPIVACAINE 0.5 % 5 MG/1 ML PF 10ML VIAL ONE; -CANA1TAB3 PO; -CYAN1TAB18 PO; -DEXAMETHASONE SOD INJ 4 MG/ML VIAL ONE; -DULO1CAP39 PO; -FENTANYL CITRATE INJ 50 MCG/1 ML 2 ML VIAL ONE; -GABA-113 PO; -GLCSR10 PO; -IBUPROFEN 200 MG TAB PO PRN; -LACTATED RINGER'S 1000ML 1,000 ML IV PRN; -LACTATED RINGER'S 1000ML 1,000 ML IV SCH; -LEVO50TA6 PO; -LIDOCAINE HCL 2% 2 ML VIAL (20MG/ML) ONE; -LSN25 PO; -METF-384 PO; -METHYLPREDNISOLONE ACETATE 80 MG/ML VIAL ONE; -MIDAZOLAM HCL 1 MG/ML 2ML VIAL ONE; -NORT10CA2 PO; -NURSING VERBAL MED ORDER ONE; -NovoLIN-R INSULIN PER UNIT CHARGE ONE; -OMEG10007 PO; -OMEP20CA9 PO; -ONDANSETRON INJ 2 MG/ML 2 ML VIAL IV PRN; -ONDANSETRON INJ 2 MG/ML 2 ML VIAL ONE; -OXYCODONE/ACETAMINOPHEN 5-325 TAB PO PRN; -REPA1TAB40 PO; +REPA1TAB42 PO
[2017-07-21 08:44] VITALS: TEMP 36.5; O2SAT 98; Ht 152.4 cm; Wt 95.4 kg
[2017-07-21] MEDS ORDERED: SODIUM CHLORIDE 0.9% 1000ML 500 ML IV STA (08:52)
[2017-07-21] MEDS ORDERED: ONDANSETRON 4MG OD TAB PO STA (08:57)
--- NOTE | 2017-07-21 09:17 | EMERGENCY ROOM VISIT NOTE ---
History Report prepared by Arianna: Trang Gay Under the Supervision of: Dr. Stevo Smalls M.D. First contact with patient: 08:50 Chief Complaint: ED VAG BLEEDING Stated Complaint: BLEEDING History of Present Illness The patient is a 42 year old female who presents to the Emergency Room with complaints of persistent abnormal vaginal bleeding that began this morning around 0500. She currently rates her discomfort as an 8/10 in severity. The patient states that she started her menstrual cycle five days ago. She states that her cycle came early this time, and notes that she has previously had late cycles. The patient states that prior to that she was very regular. She states that she was previously on control, but notes that she constantly had vaginal bleeding then. The patient states that today is supposed to be the last day of her menstrual cycle. She states that she woke around 0500 and went to the bathroom to change her tampon. The patient states that she has been soaking tampons every five minutes. She states that the blood does not seem like period blood. The patient states that she feels blood pouring out of her. She states that with her cycle she intermittently experiences right sided cramping and burning, noting that is not new. The patient denies any chance of reporting a tubal ligation 20 years ago. She states that she is feeling nauseous, but denies any urinary symptoms. Source of History: patient Onset: this morning around 0500 Position: other (global) Symptom Intensity: 8/10 Quality: other (abnormal vaginal bleeding) Timing: other (persistent) Associated Symptoms: + nausea, No urinary symptoms Review of Systems See HPI for pertinent positives & negatives. A total of 10 systems reviewed and were otherwise negative. Past Medical & Surgical Medical Problems: (1) Bronchitis (2) History of - tubal ligation (3) Hypercholesteremia (4) Hypertension (5) Hypothyroidism (6) Type 2 diabetes mellitus (7) Wrist fracture Family History Diabetes mellitus Heart disease Hypertension Kidney disease Kidney stones Social History Smoking Status: Never Smoker Alcohol Use: none Drug Use: none Marital Status: single Housing Status: lives with family Occupation Status: employed Current/Historical Medications Scheduled Atorvastatin (Lipitor), 20 MG PO HS Canagliflozin (Invokana), 300 MG PO QAM Cyanocobalamin (B-12), 1,000 MCG PO QAM Duloxetine HCl (Duloxetine HCl), 1 CAP PO HS Fish Oil ([place]-3), 1 CAP PO HS Fluticasone Propionate (Nasal) (Flonase Allergy Relief), 2 SPRAYS [place] PRN Gabapentin (Neurontin), 900 MG PO TID Glipizide (Glipizide ER), 10 MG PO QAM Levothyroxine Sodium (Levothyroxine Sodium), 50 MCG PO QAM Lisinopril (Lisinopril), 2.5 MG PO QAM Metformin Hcl (Glucophage), 1,000 MG PO BID Multiple Vitamins W/ Minerals (Womens Daily Formula), 1 TABLET PO HS Nortriptyline (Pamelor), 10 MG PO HS Omeprazole (Prilosec), 20 MG PO BID Allergies Coded Allergies: No Known Allergies (Unverified , 07/21/17) Physical Exam Vital Signs Date Time Temp Pulse Resp B/P (MAP) Pulse Ox O2 Delivery O2 Flow Rate FiO2 07/21/17 11:16 62 16 122/67 07/21/17 08:44 36.5 90 18 143/79 98 Room Air Physical Exam GENERAL: Patient is in no acute distress. HEENT: No acute trauma, normocephalic atraumatic, mucous membranes moist, no nasal congestion, no scleral icterus. NECK: Inspiratory stridor noted, no adenopathy, no meningismus, trachea is midline. LUNGS: Stridor heard, breath sounds equal, no respiratory distress. HEART: Without murmurs gallops or rubs, regular rate and rhythm. ABDOMEN: Soft, nontender, bowel sounds positive, no hernias, no peritonitis. PELVIC: Minimal menstrual vaginal blood noted, cervix tip could not be visualized, no abnormal discharge. EXTREMITIES: No cyanosis or edema, full range of motion of all the joints without pain or difficulty, no signs for acute trauma. NEUROLOGIC: Oriented x 3, no acute motor or sensory deficits, no focal weakness. SKIN: No rash, no jaundice, no diaphoresis. Medical Decision & Procedures ER Provider Diagnostic Interpretation: Radiology results as stated below per my review and radiologist interpretation: PELVIC ULTRASOUND, TRANSABDOMINAL AND TRANSVAGINAL HISTORY: EVALUATE OB-PLANNER CHIEF/VAGINAL BLEEDING COMPARISON: None. FINDINGS: Suboptimal evaluation of pelvis due to the patient's body habitus. Uterus: 11.4 x 4.7 x 4.7 cm. No uterine masses. Endometrial stripe: 4 mm in thickness. Right ovary: Obscured by overlying bowel gas. Left ovary: Obscured by overlying bowel gas. Miscellaneous:No pelvic free fluid. IMPRESSION: 1. The uterus appears to be within normal limits. 2. The ovaries were obscured by overlying bowel gas. Electronically signed by: Johnathon Dugan M.D. 07/21/2017 10:22 AM Dictated Date/Time: 07/21/2017 10:20 AM Laboratory Results 07/21/17 09:04 07/21/17 09:04 Test 07/21/17 09:04 Red Blood Count 4.13 M/uL (4.2-5.4) Mean Corpuscular Volume 94.2 fL (80-100) Mean Corpuscular Hemoglobin 30.8 pg (25-34) Mean Corpuscular Hemoglobin Concent 32.6 g/dl (32-36) RDW Standard Deviation 47.4 fL (36.4-46.3) RDW Coefficient of Variation 13.8 % (11.5-14.5) Mean Platelet Volume 10.5 fL (7.4-10.4) Prothrombin Time 9.6 SECONDS (9.0-12.0) Prothromb Time International Ratio 0.9 (0.9-1.1) Activated Partial Thromboplast Time 26.1 SECONDS (21.0-31.0) Partial Thromboplastin Ratio 1.0 Anion Gap 10.0 mmol/L (3-11) Est Creatinine Clear Calc Drug Dose 103.0 ml/min Estimated GFR () 118.0 Estimated GFR (Non- 101.9 BUN/Creatinine Ratio 15.3 (10-20) Calcium Level 9.5 mg/dl (8.5-10.1) Human Chorionic Gonadotropin, Qual NEG (NEG) Laboratory results reviewed by me. Medications Administered Medications (Trade) Dose Ordered Sig/Favian Route Start Time Stop Time Status Last Admin Dose Admin Sodium Chloride 500 ml @ 999 mls/hr Q31M STAT IV 07/21/17 08:52 07/21/17 09:22 DC 07/21/17 09:17 999 MLS/HR Ondansetron HCl (Zofran Odt) 4 mg NOW STAT PO 07/21/17 08:57 07/21/17 08:58 DC 07/21/17 09:16 4 MG ED Course 0852: The patient was evaluated in room B8. A complete history and physical exam was performed. Ordered Sodium Chloride 500 ml @ 999 mls/hr IV. 0857: Ordered Zofran Odt 4 mg PO. 1047: I performed the pelvic exam at this time. See physical exam for further detail. I discussed the exam findings with the patient and she notes that the bleeding has slowed down significantly. I discussed the treatment plan with her and she verbalized complete understanding and agreement. She is ready for discharge. Medical Decision The patient is a 42 year old female who presents to the ED with complaints of vaginal bleeding. Differential diagnoses considered include ovarian cyst, dysfunctional uterine bleeding, anemia, coagulopathy, fibroids, early menstrual cycle, menopause. There is no leukocytosis or concerning anemia. No significant electrolyte abnormality, no kidney failure. There is no coagulopathy. testing is negative. Pelvic ultrasound showed a normal uterus, the ovaries could not be visualized secondary to bowel gas. On exam, there was very minimal menstrual blood noted in the vaginal vault. The patient admits that the bleeding has slowed down significantly since her arrival here in the ER. The patient is doing well. She can follow with OB as an outpatient, she can call today for an appointment. She was encouraged to return here for heavier bleeding or worsening symptoms. She was reassured. Medication Reconcilliation Current Medication List: was personally reviewed by me Impression Primary Impression: Dysfunctional uterine bleeding Scribe Attestation The scribe's documentation has been prepared under my direction and personally reviewed by me in its entirety. I confirm that the note above accurately reflects all work, treatment, procedures, and medical decision making performed by me. Departure Information Dispostion Home / Self-Care Referrals No Doctor, Assigned (PCP) Forms HOME CARE DOCUMENTATION FORM, IMPORTANT VISIT INFORMATION, WORK / SCHOOL INSTRUCTIONS Patient Instructions My [facility] unbound technologies Additional Instructions call ob today for an appt return for heavier bleeding or worsening symptoms
[2017-07-21] MEDS ORDERED: NORT10CA2 PO (09:21)
[2017-07-21 09:24] LABS: HEMATOCRIT 38.9 % (37-47); MEAN CELL VOLUME 94.2 fL (80-100); MEAN CORPUSCULAR HEMOGLOBIN 30.8 pg (25-34); MEAN CORPUSCULAR HGB CONC 32.6 g/dl (32-36); MEAN PLATELET VOLUME 10.5 fL (7.4-10.4); PLATELET COUNT 313 K/uL (130-400); RED BLOOD COUNT 4.13 M/uL (4.2-5.4); WHITE BLOOD COUNT 9.12 K/uL (4.8-10.8)
[2017-07-21] MEDS ORDERED: ATOR-22 PO (09:24)
[2017-07-21 09:39] LABS: BUN/CREATININE RATIO 15.3 (10-20); CALCIUM 9.5 mg/dl (8.5-10.1); CREATININE 0.72 mg/dl (0.60-1.20); INR 0.9 (0.9-1.1); PROTHROMBIN TIME (PATIENT) 9.6 SECONDS (9.0-12.0)
[2017-07-21 09:45] LABS: PREG INTERNAL NEGATIVE QC NEG CLEAR BACKGROUND; PREG INTERNAL POSITIVE QC POS CONTROL LINE
--- NOTE | 2017-07-21 10:23 | DIAGNOSTIC IMAGING REPORT ---
PELVIC ULTRASOUND, TRANSABDOMINAL AND TRANSVAGINAL HISTORY: EVALUATE OB-ELECTRIC RAZOR ASSEMBLER/VAGINAL BLEEDING COMPARISON: None. FINDINGS: Suboptimal evaluation of pelvis due to the patient's body habitus. Uterus: 11.4 x 4.7 x 4.7 cm. No uterine masses. Endometrial stripe: 4 mm in thickness. Right ovary: Obscured by overlying bowel gas. Left ovary: Obscured by overlying bowel gas. Miscellaneous:No pelvic free fluid. IMPRESSION: 1. The uterus appears to be within normal limits. 2. The ovaries were obscured by overlying bowel gas. Electronically signed by: Johnathon Dugan M.D. 07/21/2017 10:22 AM Dictated Date/Time: 07/21/2017 10:20 AM
[2017-07-21 11:16] VITALS: BP 122/67; PULSE 62
[2017-07-21] MEDS ORDERED: CYAN1TAB18 PO (11:26)
[2017-07-21] MEDS ORDERED: CANA1TAB3 PO (11:26)
[2017-07-21] MEDS ORDERED: OMEG10007 PO (11:26)
[2017-07-21] MEDS ORDERED: GLCSR10 PO (15:14)
[2017-07-21] MEDS ORDERED: LSN25 PO (15:14)
[2017-07-21] MEDS ORDERED: METF-384 PO (15:14)
[2017-07-21] MEDS ORDERED: GABA-113 PO (16:20)
[2017-07-21] MEDS ORDERED: DULO1CAP39 PO (17:28)
[2017-07-21] MEDS ORDERED: OMEP20CA9 PO (20:30)
[2017-07-21] MEDS ORDERED: LEVO50TA6 PO (20:30)
--- NOTE | 2017-07-22 10:47 | DIAGNOSTIC IMAGING REPORT ---
PELVIC ULTRASOUND, TRANSABDOMINAL AND TRANSVAGINAL HISTORY: EVALUATE OB-MANAGER INTERNAL/VAGINAL BLEEDING COMPARISON: None. FINDINGS: Suboptimal evaluation of pelvis due to the patient's body habitus. Uterus: 11.4 x 4.7 x 4.7 cm. No uterine masses. Endometrial stripe: 4 mm in thickness. Right ovary: Obscured by overlying bowel gas. Left ovary: Obscured by overlying bowel gas. Miscellaneous:No pelvic free fluid. IMPRESSION: 1. The uterus appears to be within normal limits. 2. The ovaries were obscured by overlying bowel gas. Electronically signed by: Johnathon Dugan M.D. 07/21/2017 10:22 AM Dictated Date/Time: 07/21/2017 10:20 AM
== END 2017-07-21 11:10 | disposition home or self-care (01) ==
LOC: C.EDB 08:27
DX: N93.8 Other specified abnormal uterine and vaginal bleeding (principal); E78.00 Pure hypercholesterolemia, unspecified; I10 Essential (primary) hypertension; E11.9 Type 2 diabetes mellitus without complications; E03.9 Hypothyroidism, unspecified; Z98.51 Tubal ligation status; Z79.84 Long term (current) use of oral hypoglycemic drugs; Z79.899 Other long term (current) drug therapy; Z83.3 Family history of diabetes mellitus; Z82.49 Family history of ischemic heart disease and other diseases of the circulatory system; Z84.1 Family history of disorders of kidney and ureter

== ENCOUNTER 2018-02-26 23:25 | Emergency (ER) | payer BC, OTHER ==
[~2018-02-26] VITALS: Ht 152.4 cm; Wt 93.0 kg
[~2018-02-26 23:25] MED LIST changes: +ATOR-22 PO; -BIOT1CAP8 PO; +CANA1TAB3 PO; +CYAN1TAB18 PO; +DULO1CAP39 PO; -FERR325T18 PO; +GABA-113 PO; +GLCSR10 PO; +LEVO50TA6 PO; +LSN25 PO; +METF-384 PO; +NORT10CA2 PO; +OMEG10007 PO; +OMEP20CA9 PO; -OXYC-57 PO; -PRVC/20 PO; -REPA1TAB42 PO
[2018-02-26 23:30] VITALS: TEMP 36.7; Ht 152.4 cm; Wt 93.0 kg
[2018-02-27] MEDS ORDERED: HYDR-5688 PO (00:11)
--- NOTE | 2018-02-27 00:11 | EMERGENCY ROOM VISIT NOTE ---
History First contact with patient: 23:42 Chief Complaint: DENTAL PAIN Stated Complaint: FACE AND JAW PAIN Nursing Triage Summary: see triage note History of Present Illness The patient is a 43 year old female who presents to the Emergency Room with complaints of pain of the left side of her face. The patient states that she has a history of atypical trigeminal neuralgia. She states that typically, she has tingling and numbness of the left side of her face. This has been ongoing for 3.5 years. She does see a neurologist, Gayle Ambrosio for this. She states that recently, her nortriptyline has been increased. With this, she has felt that her numbness has improved but she has now developed pain in the left side of her face. She states the pain is throughout the same distribution as her trigeminal neuralgia. She rates her discomfort a 10/10 and states it is a constant, shooting pain. She has taken aslc-imp-cywawiw medications without relief. She called her neurologist and they were unable to schedule her appointment until 4 months from now. She denies any fevers, facial swelling, chest pain or shortness of breath. Review of Systems A complete 10 point review of systems was reviewed with the patient with pertinent positives and negatives as per history of present illness. All else were negative. Past Medical/Surgical History Medical Problems: (1) Bronchitis (2) History of - tubal ligation (3) Hypercholesteremia (4) Hypertension (5) Hypothyroidism (6) Type 2 diabetes mellitus (7) Wrist fracture Family History Diabetes mellitus Heart disease Hypertension Kidney disease Kidney stones Social History Smoking Status: Never Smoker Alcohol Use: none Drug Use: none Marital Status: single Housing Status: lives with family Occupation Status: employed Current/Historical Medications Scheduled Atorvastatin (Lipitor), 20 MG PO HS Canagliflozin (Invokana), 300 MG PO QAM Cyanocobalamin (B-12), 1,000 MCG PO QAM Duloxetine HCl (Duloxetine HCl), 1 CAP PO HS Fish Oil ([place]-3), 1 CAP PO HS Fluticasone Propionate (Nasal) (Flonase Allergy Relief), 2 SPRAYS [place] PRN Gabapentin (Neurontin), 900 MG PO TID Glipizide (Glipizide ER), 10 MG PO QAM Levothyroxine Sodium (Levothyroxine Sodium), 50 MCG PO QAM Lisinopril (Lisinopril), 2.5 MG PO QAM Metformin Hcl (Glucophage), 1,000 MG PO BID Multiple Vitamins W/ Minerals (Womens Daily Formula), 1 TABLET PO HS Nortriptyline (Pamelor), 50 MG PO HS Omeprazole (Prilosec), 20 MG PO BID Scheduled PRN Hydrocodone/Acetaminophen 5MG/325MG ([place] 5MG/325MG), 1-2 TABLET PO Q4H PRN for Pain Physical Exam Vital Signs Date Time Temp Pulse Resp B/P (MAP) Pulse Ox O2 Delivery O2 Flow Rate FiO2 02/27/18 00:18 71 20 138/86 100 02/26/18 23:30 36.7 63 20 140/78 99 Room Air Physical Exam VITALS: Vitals are noted on the nurse's note and reviewed by myself. Vital signs stable. GENERAL: This is a 43-year-old female, in no acute distress, nondiaphoretic, well-developed well-nourished. SKIN: The skin was without rashes, erythema, or edema. . EARS: External auditory canals clear, tympanic membranes pearly gu without erythema or effusion bilaterally. EYES: Pupils equal round and reactive to light and accommodation. MOUTH: Mucous membranes moist. No swelling or significant erythema of the gums. FACE: No facial edema. There is tenderness to palpation to the left maxillary region. NECK: Supple without nuchal rigidity. No lymphadenopathy. HEART: Regular rate and rhythm without murmurs gallops or rubs. LUNGS: Clear to auscultation bilaterally without wheezes, rales or rhonchi. NEURO: Patient was alert and oriented to person place and time. Medical Decision & Procedures Medications Administered Medications (Trade) Dose Ordered Sig/Favian Route Start Time Stop Time Status Last Admin Dose Admin Acetaminophen/ Hydrocodone Bitart ([place]ill[place] 5/325mg Home Pack) 1 homepack UD ONCE PO 02/27/18 00:15 02/27/18 00:16 DC 02/27/18 00:10 1 HOMEPACK Medical Decision Differential diagnosis includes trigeminal neuralgia, herpes zoster, dental infection, facial cellulitis, among others. The patient was evaluated as above. She reports a history of trigeminal neuralgia. Her pain does not seem to be dental in origin. There is no evidence of a facial cellulitis or abscess. She was given a home pack and short course of Mcmillan to be used as needed for pain but was advised to contact her neurologist immediately in the morning to schedule follow-up. She verbalized understanding of my assessment and treatment plan and was discharged home in good condition. [facility] Drug Monitoring Program Search Results: patient reviewed within database, no issues identified Medication Reconcilliation Current Medication List: was personally reviewed by me Blood Pressure Screening Patient's blood pressure: Elevated blood pressure Blood pressure disposition: Elevated BP felt to be situational Impression Primary Impression: Left facial pain Departure Information Dispostion Home / Self-Care Condition GOOD Prescriptions Hydrocodone/Acetaminophen 5MG/325MG ([place]illan 5MG/325MG) Tab 1-2 TABLET PO Q4H Y for Pain, #15 TAB For Initial Treatment Prov: Sharda Flood .ANIKA 02/27/18 Referrals Gayle Ambrosio M.D. Patient Instructions My [facility] Additional Instructions You have been treated in the Emergency Department for facial pain. You have been prescribed Mcmillan to be used for pain control. This is a narcotic medication. You cannot drive or consume alcohol while on this medicine. This medicine should only be used for pain that cannot be controlled with over-the- counter pain medicines. For pain control, you can use the following [id number] medicines (if >12 yo): - Regular strength (325mg/tab) Tylenol (acetaminophen) 2 tabs every 4-6 hours as needed. Do not exceed 12 tablets in a 24 hour period. Avoid taking more than 4 grams (4000 mg) of Tylenol per day. This includes any other sources of acetaminophen you may take on a regular basis. - Regular strength (200 mg/tab) Advil (ibuprofen) 1-2 tabs every 4-6 hours as needed. Do not exceed a dose of 3200 mg per day. Follow-up with your neurologist. Call tomorrow for appointment. Return to the emergency department if you develop the following symptoms despite treatment course outlined above: fever, intractable pain, increased redness or swelling.
[2018-02-27] MEDS ORDERED: NORCO 5/325MG HOME PACK PO ONE (00:15)
[2018-02-27 00:18] VITALS: BP 138/86; PULSE 71; O2SAT 100
== END 2018-02-27 00:19 | disposition home or self-care (01) ==
LOC: C.EDB 23:26
DX: R51 Headache (principal); G50.0 Trigeminal neuralgia; I10 Essential (primary) hypertension; E03.9 Hypothyroidism, unspecified; E11.9 Type 2 diabetes mellitus without complications; E78.00 Pure hypercholesterolemia, unspecified; Z79.84 Long term (current) use of oral hypoglycemic drugs; Z79.899 Other long term (current) drug therapy

== ENCOUNTER 2019-10-04 22:19 | Observation (INO) ==
[2019-10-04] MEDS ORDERED: ALBUT/IPRATROP 3MG/0.5MG NEB 3 ML VIAL NEB STA (22:38)
[2019-10-04] MEDS ORDERED: KETOROLAC TROMETHAMINE 15 MG/ML VIAL IV STA (22:38)
[2019-10-04] MEDS ORDERED: SODIUM CHLORIDE 0.9% 1000ML 1,000 ML IV SCH (22:45)
[2019-10-04] MEDS ORDERED: DEXAMETHASONE **PF** INJ 10 MG/ML VIAL IV ONE (22:46)
--- NOTE | 2019-10-04 22:56 | XRay Report ---
XR chest 1V portable CLINICAL HISTORY: cough/fever COMPARISON STUDY: Chest radiograph April 19, 2019. FINDINGS: Lung volumes are mildly diminished. This is unchanged. There is no pneumothorax or pleural effusion. There is probable mild left basilar opacity. Right lung is clear. Cardiac size is normal. M ediastinal contours are unremarkable. There is no evidence for pulmonary edema. IMPRESSION: Probable mild left basilar opacity which favors pneumonia. Radiographic follow-up to ens ure resolution is recommended. ACT 112: Negative or not required by law. Electronically signed by: Aki Casper M.D. 10/04/2019 10:55 PM
[2019-10-04] MEDS ORDERED: cefTRIAXone SODIUM 2,000 MG/70 ML BAG IV STA (22:58)
[2019-10-04] MEDS ORDERED: AZITHROMYCIN 250 MG TAB PO ONE (22:58)
[2019-10-04 23:05] LABS: Appearance Urine Clear (Clear); Bacteria Urine Automated Negative (Negative); Bilirubin Urine Negative (Negative); Blood Urine 2+ (Negative); Color Urine Yellow; Epithelial Cell Urine Auto >30 /lpf (0-5); Glucose Urine UA 3+ (Negative); Ketones Urine Trace (Negative); Leukocyte Esterase Urine Negative (Negative); Nitrite Urine Negative (Negative); Protein Urine 1+ (Negative); RBC Urine Automated 0-4 /hpf (0-4); Specific Gravity Urine 1.044 (1.000-1.030); Urobilinogen Urine Negative (Negative)
--- NOTE | 2019-10-04 23:12 | Emergency Department Note ---
History of Present Illness General Chief complaint: Illness Stated complaint: CHEST COLD, WEAKNESS,FEVER, HEADACHE, VOMITING History of Present Illness Maximum Pain Intensity: 5 This 44-year-old presents to the ER complaining of flulike illness Location: Generalized Quality: Achy Severity: Moderate Duration: Today Timing: Symptoms started today Context: Symptoms got worse and patient came in Modifying factors: better with Tylenol; worse with coughing Patient complains of chest pain with coughing. She did receive her flu vaccine. Patient denies abdominal pain, vomiting, diarrhea, sore throat, neck stiffness. She is tolerating p.o. fluids. Home Medications Home Medications Medication Instructions Recorded Confirmed Type atorvastatin [Lipitor] 20 mg PO HS 07/16/18 10/04/19 History cyanocobalamin (vitamin B-12) 1,000 mcg PO HS 07/16/18 10/04/19 History fluticasone propionate [Flonase 2 spray INTRANASAL DIRECTED PRN 07/16/18 10/04/19 History Allergy Relief] glipizide 10 mg PO BID 07/16/18 10/04/19 History levothyroxine 50 mcg PO QAM 07/16/18 10/04/19 History lisinopril 2.5 mg PO HS 07/16/18 10/04/19 History metformin 1,000 mg PO BID 07/16/18 10/04/19 History multivitamin 1 tab PO HS 07/16/18 10/04/19 History byzam-2z-voe-epa-fish oil [[place]-3 1 cap PO QAM 07/16/18 10/04/19 History Fish Oil] omeprazole 20 mg PO BID 07/16/18 10/04/19 History aspirin 81 mg PO HS 04/19/19 10/04/19 History empagliflozin [Jardiance] 25 mg PO QAM 04/19/19 10/04/19 History gabapentin 900 mg PO TID 04/19/19 10/04/19 History linagliptin [Tradjenta] 5 mg PO QAM 04/19/19 10/04/19 History medroxyprogesterone 150 mg IM Q3M 04/19/19 10/04/19 History semaglutide [Ozempic] 1 mg SUBCUT WK 04/19/19 10/04/19 History Allergies Allergy/AdvReac Type Severity Reaction Status Date / Time No Known Allergies Allergy Unverified 10/04/19 23:48 Past Med/Surg History Medical History Hypercholesteremia Hypertension Hypothyroidism Narrow pharyngeal airway Type 2 diabetes mellitus Surgical History History of - tubal ligation (Resolved 06/12/13) History of surgery on right wrist Social History Preferred Language: Vietnamese Feels Safe at Home: Yes Smoking Status: Never smoker Physical Exam Vital Signs Vital Signs - 24 hr 10/04/19 22:25 10/04/19 23:12 10/04/19 23:52 Temperature 37.2 C 37.0 C Temperature Source Oral Oral Pulse Rate 127 H Pulse Rate [Right Finger] 117 H 115 H Respiratory Rate 20 18 25 H Respiratory Effort / Characteristics Non-Labored Spontaneous Blood Pressure 125/76 Blood Pressure [Right Arm] 95/56 L Blood Pressure Mean 92 Blood Pressure Mean [Right Arm] 69 Blood Pressure Position [Right Arm] Sitting Pulse Oximetry 91 91 89 L Oxygen Delivery Method Room Air Room Air Room Air Sepsis Recent Fever Within 48 Hours No Sepsis New/Unexplained Change in Mental Status No Sepsis Action Taken by Nursing No Action Required 10/05/19 00:14 Temperature Temperature Source Pulse Rate Pulse Rate [Right Finger] 111 H Respiratory Rate 22 Respiratory Effort / Characteristics Blood Pressure Blood Pressure [Right Arm] 122/58 L Blood Pressure Mean Blood Pressure Mean [Right Arm] 79 Blood Pressure Position [Right Arm] Sitting Pulse Oximetry 91 Oxygen Delivery Method Room Air Sepsis Recent Fever Within 48 Hours Sepsis New/Unexplained Change in Mental Status Sepsis Action Taken by Nursing VITALS: Vitals are noted on the nurse's note and reviewed by myself. Vital signs tachycardic. GENERAL: Pleasant female coughing, mildly ill-appearing SKIN: The skin was without rashes, erythema, edema, or bruising. There is no tenting of the skin. Capillary reflex less than 2 seconds. HEAD: Normocephalic atraumatic. EARS: External auditory canals clear, tympanic membranes pearly gu without erythema or effusion bilaterally. EYES: Pupils equal round and reactive to light and accommodation. Conjunctivae without injection, sclerae without icterus. Extraocular movements intact. NOSE: Patent, turbinates without inflammation or discharge. No sinus tenderness. MOUTH: Mucous membranes moist. Pharynx without erythema or exudate. Uvula midline. Airway patent. Tongue does not deviate. NECK: Supple without nuchal rigidity. No lymphadenopathy. No thyromegaly. Cervical spine is nontender. No JVD. HEART: Tachycardic rate and rhythm LUNGS: Mild diffuse end expiratory wheezes No retractions or accessory muscle use. ABDOMEN: Positive bowel sounds x 4. Normal tympanic percussion. Soft, nontender, without masses or organomegaly. Webb sign negative. No guarding or rebound tenderness. No CVA tenderness MUSCULOSKELETAL: No muscle atrophy, erythema, or edema noted. NEURO: Patient was alert and oriented to person place and time. Normal sensation to light and sharp touch. No focal neurological deficits. Course Administered Medications Sodium Chloride (Nss 1000ml) 1,000 mls @ 999 mls/hr IV .Q1H1M ONE Stop: 10/05/19 00:40 Last Admin: 10/04/19 23:51 Dose: 999 mls/hr Documented by: [id number] Discontinued Medications Albuterol (Duoneb) 3 ml NEB NOW STA Stop: 10/04/19 22:39 Last Admin: 10/04/19 23:10 Dose: 3 ml Documented by: [id number] Azithromycin (Zithromax) 500 mg PO NOW ONE Stop: 10/04/19 22:59 Last Admin: 10/04/19 23:07 Dose: 500 mg Documented by: [id number] Dexamethasone Sodium Phosphate (Decadron Pf) 10 mg IV NOW ONE Stop: 10/04/19 22:47 Last Admin: 10/04/19 23:35 Dose: 10 mg Documented by: [id number] Sodium Chloride (Nss 1000ml) 1,000 mls @ 999 mls/hr IV .Q1H1M MARIANNA Stop: 10/04/19 23:45 Last Admin: 10/04/19 23:35 Dose: 999 mls/hr Documented by: [id number] Ceftriaxone Sodium (Rocephin) 2,000 mg in 70 mls @ 140 mls/hr IV NOW STA Stop: 10/04/19 23:27 Last Infusion: 10/05/19 00:08 Dose: 0 mls/hr Documented by: [id number] Admin: 10/04/19 23:35 Dose: 140 mls/hr Documented by: [id number] Ketorolac Tromethamine (Toradol) 10 mg IV NOW STA Stop: 10/04/19 22:39 Last Admin: 10/04/19 23:35 Dose: 10 mg Documented by: [id number] Medical Decision Making Medical Records Attestation: I reviewed the patient's medical records. Home Medications Current Medication List: was personally reviewed by me Laboratory Data Attestation: I reviewed the patient's lab results. Result diagrams: 10/04/19 23:18 10/04/19 23:18 Lab Results 10/04/19 10/04/19 10/04/19 Range/Units 22:45 22:45 23:18 WBC 5.32 (4.8-10.8) K/uL RBC 4.06 L (4.2-5.4) M/uL Hgb 12.3 (12.0-16.0) g/dL Hct 38.6 (37-47) % MCV 95.1 (80-100) fL MCH 30.3 (25-34) pg MCHC 31.9 L (32-36) g/dL RDW Std Deviation 49.8 H (36.4-46.3) fL RDW Coeff of Carleen 14.3 (11.5-14.5) % Plt Count 251 (130-400) K/uL MPV 10.0 (7.4-10.4) fL Immature Gran % (Auto) 0.8 % Neut % (Auto) 57.5 % Lymph % (Auto) 26.7 % Shelby % (Auto) 14.8 % Eos % (Auto) 0.0 % Baso % (Auto) 0.2 % Immature Gran # (Auto) 0.04 H (0.00-0.02) K/uL Neut # (Auto) 3.06 (1.4-6.5) K/uL Lymph # (Auto) 1.42 (1.2-3.4) K/uL Shelby # (Auto) 0.79 H (0.11-0.59) K/uL Eos # (Auto) 0.00 (0-0.5) K/uL Baso # (Auto) 0.01 (0-0.2) K/uL Sodium (136-145) mmol/L Potassium (3.5-5.1) mmol/L Chloride (98-107) mmol/L Carbon Dioxide (21-32) mmol/L Anion Gap (3-11) BUN (7-18) mg/dl Creatinine (0.6-1.2) mg/dl Est Cr Clr Drug Dosing ml/min Est GFR ( Amer) Est GFR (Non-Af Amer) BUN/Creatinine Ratio (10-20) Glucose (70-99) mg/dl Calcium (8.5-10.1) mg/dl Total Bilirubin (0.2-1) mg/dl AST (15-37) U/L ALT (12-78) U/L Alkaline Phosphatase (45-117) U/L Troponin I (0-0.045) ng/ml Total Protein (6.4-8.2) gm/dl Albumin (3.4-5.0) gm/dl Globulin (2.5-4.0) gm/dl Albumin/Globulin Ratio (0.9-2) Urine Color Yellow Urine Appearance Clear (Clear) Urine pH 5.0 (4.5-7.5) Ur Specific [place] 1.044 H (1.000-1.030) Urine Protein 1+ H (Negative) Urine Glucose (UA) 3+ H (Negative) Urine Ketones Trace H (Negative) Urine Blood 2+ H (Negative) Urine Nitrite Negative (Negative) Urine Bilirubin Negative (Negative) Urine Urobilinogen Negative (Negative) Ur Leukocyte Esterase Negative (Negative) Urine WBC (Auto) 10-30 H (0-5) /hpf Urine RBC (Auto) 0-4 (0-4) /hpf U Hyaline Cast (Auto) 1-5 (0-5) /lpf U Epithel Cells (Auto) >30 H (0-5) /lpf Urine Bacteria (Auto) Negative (Negative) POC Ur Test (NEG) Influenza Type A (PCR) Neg for Influ A (Neg) Influenza Type B (PCR) Neg for Influ B (Neg) 10/04/19 10/04/19 Range/Units 23:18 Unknown WBC (4.8-10.8) K/uL RBC (4.2-5.4) M/uL Hgb (12.0-16.0) g/dL Hct (37-47) % MCV (80-100) fL MCH (25-34) pg MCHC (32-36) g/dL RDW Std Deviation (36.4-46.3) fL RDW Coeff of Carleen (11.5-14.5) % Plt Count (130-400) K/uL MPV (7.4-10.4) fL Immature Gran % (Auto) % Neut % (Auto) % Lymph % (Auto) % [place] % (Auto) % Eos % (Auto) % Baso % (Auto) % Immature Gran # (Auto) (0.00-0.02) K/uL Neut # (Auto) (1.4-6.5) K/uL Lymph # (Auto) (1.2-3.4) K/uL [place] # (Auto) (0.11-0.59) K/uL Eos # (Auto) (0-0.5) K/uL Baso # (Auto) (0-0.2) K/uL Sodium 137 (136-145) mmol/L Potassium 3.5 (3.5-5.1) mmol/L Chloride 107 (98-107) mmol/L Carbon Dioxide 23 (21-32) mmol/L Anion Gap 7.0 (3-11) BUN 9 (7-18) mg/dl Creatinine 0.68 (0.6-1.2) mg/dl Est Cr Clr Drug Dosing 102.1 ml/min Est GFR ( Amer) 121.6 Est GFR (Non-Af Amer) 104.9 BUN/Creatinine Ratio 13.2 (10-20) Glucose 164 H (70-99) mg/dl Calcium 9.1 (8.5-10.1) mg/dl Total Bilirubin 0.2 (0.2-1) mg/dl AST 33 (15-37) U/L ALT 43 (12-78) U/L Alkaline Phosphatase 90 (45-117) U/L Troponin I < 0.015 (0-0.045) ng/ml Total Protein 8.0 (6.4-8.2) gm/dl Albumin 3.0 L (3.4-5.0) gm/dl Globulin 5.0 H (2.5-4.0) gm/dl Albumin/Globulin Ratio 0.6 L (0.9-2) Urine Color Urine Appearance (Clear) Urine pH (4.5-7.5) Ur Specific [place] (1.000-1.030) Urine Protein (Negative) Urine Glucose (UA) (Negative) Urine Ketones (Negative) Urine Blood (Negative) Urine Nitrite (Negative) Urine Bilirubin (Negative) Urine Urobilinogen (Negative) Ur Leukocyte Esterase (Negative) Urine WBC (Auto) (0-5) /hpf Urine RBC (Auto) (0-4) /hpf U Hyaline Cast (Auto) (0-5) /lpf U Epithel Cells (Auto) (0-5) /lpf Urine Bacteria (Auto) (Negative) POC Ur Test NEG (NEG) Influenza Type A (PCR) (Neg) Influenza Type B (PCR) (Neg) Imaging Data Attestation: I personally reviewed and interpreted this imaging study as follows: MDM Narrative Prior records/ancillary studies reviewed. Triage Nursing notes reviewed. Additional history obtained from family The patient's history was concerning for fever. Differential diagnosis: Etiologies such as viral syndrome, otitis, pharyngitis, pneumonia, influenza, meningitis, urinary tract infection, sepsis, bacteremia, as well as others were entertained. Physical examination: As above ER treatment provided: Nebulizer, Rocephin, Decadron, Zithromax, IV fluids On reassessment the patient felt better. Diagnostics interpreted by me: ECG: Ordered for chest pain EKG: Normal sinus, poor baseline, no acute ST-T wave changes. Impression sinus tachycardia interpreted by myself I think arrhythmia is unlikely. EKG shows normal sinus rhythm with no interval abnormalities such as QT prolongation or WPW. There are no findings to suggest Brugada syndrome. Cardiac monitoring in the emergency department reveals no tachycardic or bradycardic dysrhythmia. Hypertrophic cardiomyopathy was considered but there are no clear historical elements pointing toward this. EKG is not suggestive. The QRS voltage is not extremely large and there are no suggestive Q waves. The labs revealed no leukocytosis, hyperglycemia without DKA. Blood cultures pending. Negative flu Imaging studies: XR chest 1V portable CLINICAL HISTORY: cough/fever COMPARISON STUDY: Chest radiograph April 19, 2019. FINDINGS: Lung volumes are mildly diminished. This is unchanged. There is no pneumothorax or pleural effusion. There is probable mild left basilar opacity. Right lung is clear. Cardiac size is normal. Mediastinal contours are unremarkable. There is no evidence for pulmonary edema. IMPRESSION: Probable mild left basilar opacity which favors pneumonia. Radiographic follow-up to ensure resolution is recommended. ACT 112: Negative or not required by law. Electronically signed by: Aki Casper M.D. 10/04/2019 10:55 PM Dictated: [id number]/04/[id number] Transcribed: 10/04/192253 CURB Score: Confusion: 0 Urea (BUN > 19): 0 Respiratory Rate (>30/min): 0 Blood Pressure: Diastolic <60 or Systolic <90 0 Age (>= 65) 0 Total (0-1 low risk, 2-5 high risk): 0 Consultation: A consultation was placed with Dr Miller. The case was discussed and diagnostics were reviewed. The patient was evaluated in the ER for further treatment. This appears to be consistent with pneumonia. Patient was hypoxic at 89% on room air. She was given antibiotics and a nebulizer. Medicine was consulted. Patient is agreeable treatment plan of admission. By the evaluation outlined above emergent etiologies such as otitis, pharyngitis meningitis, urinary tract infection, sepsis, bacteremia, as well as others were deemed relatively unlikely. The pt informed about the findings as listed above. All questions were answered and pleased with the treatment. Case reviewed with my attending The chart was completed utilizing [employer] Speech voice recognition software. Grammatical errors, random word insertions, pronoun errors, and incomplete sentences are an occassional consequence of this system due to software limitations, ambient noise, and hardware issues. Any formal questions or concerns about the content, text, or information contained within the body of this dictation should be directly addressed to the physician speech correction assistant for clarification. Impression & Plan Pneumonia, Hypoxic Discharge Plan Visit Data Chief Complaint: Illness Stated Complaint: CHEST COLD, WEAKNESS,FEVER, HEADACHE, VOMITING ED Provider: Yonas Zelaya ED Midlevel Provider: Sara Burger Discharge Problem: Pneumonia, Hypoxic Patient Disposition: Being Evaluated by Hospitalist Condition: Good Forms Stand Alone Forms: My [facility] [employer] Prescriptions Prescriptions: No Action multivitamin Tablet 1 tab PO HS RF: 0 atorvastatin [Lipitor] 20 mg Tablet 20 mg PO HS RF: 0 glipizide 10 mg Tablet 10 mg PO BID RF: 0 cyanocobalamin (vitamin B-12) 1,000 mcg Tablet 1,000 mcg PO HS RF: 0 levothyroxine 50 mcg Tablet 50 mcg PO QAM RF: 0 metformin 1,000 mg Tablet 1,000 mg PO BID RF: 0 omeprazole 20 mg Capsule,Delayed Release(Dr/Ec) 20 mg PO BID RF: 0 fluticasone propionate [Flonase Allergy Relief] 50 mcg/actuation [place],Suspension 2 spray Intranasal DIRECTED PRN (Reason: Congestion) RF: 0 lisinopril 2.5 mg Tablet 2.5 mg PO HS RF: 0 Lima-3 Fish Oil 300-1,000 mg Capsule 1 cap PO QAM RF: 0 aspirin 81 mg Tablet,Delayed Release (Dr/Ec) 81 mg PO HS RF: 0 gabapentin 300 mg capsule 900 mg PO TID RF: 0 medroxyprogesterone 150 mg/mL syringe 150 mg IM Q3M RF: 0 Tradjenta 5 mg tablet 5 mg PO QAM RF: 0 Jardiance 25 mg tablet 25 mg PO QAM RF: 0 Ozempic 1 mg/dose (2 mg/1.5 mL) pen injector 1 mg subcut WK RF: 0 Referrals Referrals: Gricelda Ochoa DO [Primary Care Provider] -
[2019-10-04 23:33] LABS: Basophils # (auto) 0.01 K/uL (0-0.2); Basophils % (auto) 0.2 %; Hematocrit (blood only) 38.6 % (37-47); Hemoglobin 12.3 g/dL (12.0-16.0); Immature Granulocytes # (auto) 0.04 K/uL (0.00-0.02); Immature Granulocytes % (auto) 0.8 %; Lymphocytes # (auto) 1.42 K/uL (1.2-3.4); Lymphocytes % (auto) 26.7 %; Mean Corpuscular Hemoglobin 30.3 pg (25-34); Mean Corpuscular Hgb Conc 31.9 g/dL (32-36); Mean Corpuscular Volume 95.1 fL (80-100); Monocytes # (auto) 0.79 K/uL (0.11-0.59); Monocytes % (auto) 14.8 %; Neutrophils # (auto) 3.06 K/uL (1.4-6.5); Neutrophils % (auto) 57.5 %; Platelet Count 251 K/uL (130-400); RDW Coefficient of Variation 14.3 % (11.5-14.5); RDW Standard Deviation 49.8 fL (36.4-46.3); Red Blood Count 4.06 M/uL (4.2-5.4); White Blood Count 5.32 K/uL (4.8-10.8)
[2019-10-04 23:34] LABS: Influenza A virus by PCR Neg for Influ A (Neg); Influenza B virus by PCR Neg for Influ B (Neg)
[2019-10-04] MEDS ORDERED: SODIUM CHLORIDE 0.9% 1000ML 1,000 ML IV ONE (23:40)
[2019-10-04 23:50] LABS: Alanine Aminotransferase 43 U/L (12-78); Aspartate Aminotransferase 33 U/L (15-37); BUN Creatinine Ratio 13.2 (10-20); Blood Urea Nitrogen 9 mg/dl (7-18); Calcium 9.1 mg/dl (8.5-10.1); Carbon Dioxide 23 mmol/L (21-32); Chloride 107 mmol/L (98-107); Creatinine Clr Calc Pharmacy 102.1 ml/min; Est GFR (African American) 121.6; Est GFR (Non-African American) 104.9; Glucose 164 mg/dl (70-99); Potassium 3.5 mmol/L (3.5-5.1); Sodium 137 mmol/L (136-145)
[2019-10-04 23:54] LABS: Albumin Globulin Ratio 0.6 (0.9-2); Alkaline Phosphatase 90 U/L (45-117); Bilirubin,Total 0.2 mg/dl (0.2-1); Troponin I < 0.015 ng/ml (0-0.045)
[2019-10-05] MEDS ORDERED: MAGNESIUM SULFATE / D5W 1 GM/100 ML BAG IV ONE (01:47)
[2019-10-05] MEDS ORDERED: FLUTICASONE PROPIONATE NA SPR 16 GM BTL PRN (01:47)
[2019-10-05] MEDS ORDERED: BENZONATATE 100 MG CAPSULE PO PRN (01:47)
[2019-10-05] MEDS ORDERED: ACETAMINOPHEN 325 MG TAB PO PRN (01:47)
[2019-10-05] MEDS ORDERED: LEVALBUTEROL HCL 0.63 MG/3 ML NEB NEB PRN (01:47)
[2019-10-05] MEDS ORDERED: NITROGLYCERIN SL 0.4 MG/TAB TAB SL PRN (01:47)
--- NOTE | 2019-10-05 02:27 | History and Physical Report ---
DATE OF ADMISSION: 10/05/2019 CHIEF COMPLAINT: Cough and fever. HISTORY OF PRESENT ILLNESS: This is a 44-year-old female with past medical history significant for type 2 diabetes, hyperlipidemia, morbid obesity, trigeminal neuralgia, history of multinodular goiter. About 6 years ago, her thyroid nodule was compressing her airway. She has partial thyroidectomy done in [place], initially airway improved, but later again narrowed requiring few bronchoscopies to dilated her airway. Since then she generally has chronic shortness of breath from this narrowing airway. Since last Friday, she started feeling sick. She had some chest congestion, cough, it was dry cough and later she is having a constant headache,on and off fever and chills, not feeling well, so she came to the ER and she was in tachycardia, normal white count and somewhat tachypneic, saturating 89% on room air. Electrolytes are okay. Influenza A and B negative. Chest x-ray was showing probable mid left basilar opacity concerning for pneumonia. Currently resting comfortably and hemodynamically stable, saturating fine on oxygen. Has some headache. No dizziness, no blurred visions, no earache, no runny nose. Has some sore throat from coughing and she has chest pain and rib pain from coughing, her shortness of breath, nothing more than usual. No nausea, no vomiting, no abdominal pain, no diarrhea, no constipation, no black stools or blood in the stools. No hematuria or burning micturition, no swelling in the legs, no rash. She sleeps okay. Appetite is down for the last few days. Lives with her and otherwise she climbs steps and ambulated without any issues. ALLERGIES: No known drug allergies. PAST MEDICAL HISTORY: As mentioned above. PAST SURGICAL HISTORY: Bronchoscopies, laparoscopic vocal cord injection, ligation of oviducts, partial removal of thyroid lobe. MEDICATIONS: The patient is on glipizide 20 mg p.o. daily, levothyroxine 50 mcg daily, Jardiance 25 mg daily, metformin 1000 mg p.o. b.i.d., Lipitor 20 mg p.o. daily, Tradjenta 5 mg p.o. daily, lisinopril 2.5 mg p.o. daily, Depo-Provera injection every 3 months, Neurontin 900 mg p.o. t.i.d., Ozempic 1 mg injection once a week, omeprazole 20 mg p.o. b.i.d., Flonase 2 sprays in each nostril daily, aspirin 81 mg p.o. daily, vitamin B12 1000 mcg daily, omega fish oil 1 capsule daily, multivitamins 1 tablet daily. FAMILY HISTORY: Significant for: Sister has anemia. Mother has diabetes, hypertension, emphysema. Maternal aunt has breast cancer. Paternal aunt has breast cancer. Paternal cousin has breast cancer. Maternal aunt has heart disorder. Paternal grandfather has heart attack. Maternal grandmother has diabetes. SOCIAL HISTORY: , lives with . No smoking, alcohol, social drinking. No drug use. REVIEW OF SYMPTOMS: As per HPI. Rest of review of systems negative. PHYSICAL EXAMINATION: GENERAL: The patient is of moderate build, not in acute distress. VITAL SIGNS: Temperature 37, pulse 115, respiratory rate in 20s, blood pressure 95/56, oxygen 99% on room air. HEENT: No pallor, no icterus. Pupils equal, round, reactive to light. NECK: No JVD, no neck masses, no carotid bruits. CARDIOVASCULAR: S1, S2 heard. Tachycardia. No murmurs. RESPIRATORY SYSTEM: Normal AP diameter. No accessory muscle use. No wheezing, no crackles. ABDOMEN: Soft, bowel sounds present, nontender. No distention. CENTRAL NERVOUS SYSTEM: Cranial nerves II-XII grossly intact. Nonfocal. EXTREMITIES: No edema, no erythema. LABORATORY DATA: WBC 5.3, hemoglobin 12.3, hematocrit 38.6, platelets 251. Sodium 137, potassium 3.5, chloride 107, bicarbonate 23, BUN 9, creatinine 0.6, serum glucose 164, calcium 9.1, total bilirubin 0.2, AST 33, ALT 43, alkaline phosphatase 90. Troponin I less than 0.015. Urinalysis, positive for ketones and blood. Influenza A and B PCR negative. IMAGING DATA: Chest x-ray, probable mid left basilar opacity which favors pneumonia. Radiographic followup to ensure resolution is recommended. EKG: Shows sinus tachycardia with short MT at a rate of 119. Prolonged QTC at 627. ASSESSMENT AND PLAN: This is a 44-year-old female who presents with cough, fever and not feeling well and found to have pneumonia. 1. Pneumonia, Community acquired, chest x-ray shows left basilar opacity. In the ER, started on Rocephin and azithromycin, but since her qt prolonged on ekg will started on doxycycline and continue Rocephin. Flu was negative. We will follow the lactic acid. We will follow the cultures. Monitor on medical floor. Maria Guadalupe p.r.n. Monitor in med/surg tele. 2. Prolonged QT. Avoid QT prolonging drugs. We will follow repeat EKG in a.m. We will give a dose of magnesium. 3. The patient has history of multinodular goiter, status post partial thyroidectomy, it was causing compression on her airways, had a bronchoscopy few times to dilate her airway. She is usually has some shortness of breath at baseline. We will monitor. The patient is difficult to intubation. 4. Type 2 diabetes. Hold her p.o. medications, place on Lantus insulin sliding scale. Follow the blood sugars, diabetic diet. 5. Hyperlipidemia, on statin. 6. Hypertension. Lisinopril. We will monitor blood pressure. 7. Gastroesophageal reflux disease, on PPI. 8. Hypothyroidism, on Synthroid. 9. Deep venous thrombosis prophylaxis, sequential compression devices. DISPOSITION: Admit to med/surg tele. Level 1 full code. Expect to discharge home and follow with her family doctor. ALEXANDRO
[2019-10-05] MEDS: SODIUM CHLORIDE 0.9% 1000ML 1,000 ML IV SCH ×2 (02:33→10:50)
[2019-10-05] MEDS ORDERED: GLUCAGON FOR INJ 1 MG VIAL IM PRN (03:45)
[2019-10-05] MEDS ORDERED: GLUCOSE 40% GEL 15 GM TUBE PO PRN (03:45)
[2019-10-05] MEDS ORDERED: DEXTROSE 50% 50 ML SYRINGE IV PRN (03:45)
[2019-10-05] MEDS ORDERED: GLUCOSE 10 TABS/TUBE PO PRN (03:45)
[2019-10-05] MEDS ORDERED: CARBOHYDRATES FOR HYPOGLYCEMIA PO PRN (03:45)
[2019-10-05] MEDS: INSULIN ASPART 100 UNITS/ML 3 ML PEN SC SCH ×4 (05:03→18:05)
[2019-10-05] MEDS: DOXYCYCLINE HYCLATE 100 MG in DEXTROSE 5% 100 ML IV SCH ×2 (05:32→18:35)
[2019-10-05] MEDS ORDERED: INSULIN HUMAN REGULAR PER UNIT 4 UNITS in SYRINGE 3.96 ML IV STA (05:43)
[2019-10-05] MEDS ORDERED: POTASSIUM CHLORIDE 20 MEQ TABCR PO STA (05:46)
[2019-10-05] MEDS ORDERED: LEVOTHYROXINE SODIUM 50 MCG TABLET PO SCH (06:30)
[2019-10-05 07:30] LABS: Hematocrit (blood only) 37.5 % (37-47); Hemoglobin 11.7 g/dL (12.0-16.0); Immature Granulocytes # (auto) 0.04 K/uL (0.00-0.02); Immature Granulocytes % (auto) 0.8 %; Lymphocytes # (auto) 0.64 K/uL (1.2-3.4); Lymphocytes % (auto) 13.2 %; Mean Corpuscular Hemoglobin 30.2 pg (25-34); Mean Corpuscular Hgb Conc 31.2 g/dL (32-36); Mean Corpuscular Volume 96.6 fL (80-100); Mean Platelet Volume 10.3 fL (7.4-10.4); Monocytes # (auto) 0.14 K/uL (0.11-0.59); Monocytes % (auto) 2.9 %; Neutrophils # (auto) 4.04 K/uL (1.4-6.5); Neutrophils % (auto) 83.1 %; Platelet Count 220 K/uL (130-400); RDW Coefficient of Variation 14.5 % (11.5-14.5); RDW Standard Deviation 51.1 fL (36.4-46.3); Red Blood Count 3.88 M/uL (4.2-5.4); White Blood Count 4.86 K/uL (4.8-10.8)
[2019-10-05] MEDS: GABAPENTIN 300 MG CAP PO SCH ×2 (08:19→13:39)
[2019-10-05 08:43] LABS: BUN Creatinine Ratio 19.6 (10-20); Calcium 8.1 mg/dl (8.5-10.1); Est GFR (African American) 122.8; Est GFR (Non-African American) 105.9
[2019-10-05 08:46] LABS: Magnesium 2.5 mg/dl (1.8-2.4)
[2019-10-05 08:50] LABS: Estimated Average Glucose 240 mg/dl
[2019-10-05] MEDS ORDERED: INSULIN GLARGINE SOLOSTAR 100 UNITS/ML 3 ML PEN SC SCH ×4 (09:00→21:00)
[2019-10-05] MEDS ORDERED: PANTOprazole 40 MG TAB PO SCH (09:00)
--- NOTE | 2019-10-05 09:11 | Hospitalist Progress Note ---
Date of Service October 05, 2019 Assessment & Plan (1) Pneumonia: Cough and fever Chest x-ray showing probable left basilar opacity. Currently on ceftriaxone and doxycycline. No leukocytosis. Not hypoxic (2) Prolonged QT interval: QTC on admission EKG was 627 Second EKG had QTC at 449 Avoid QT prolonging medications (3) Type 2 diabetes mellitus: Blood glucose is poorly controlled Hemoglobin A1c is 10 Patient refusing insulin on discharge. At home patient is on Tradjenta, metformin and Ozempic We will provide more counseling tomorrow medical educator recommendations appreciated We will continue to adjust insulin to optimize glycemic control with pharmacist (4) Hypertension: Blood pressure stable Continue antihypertensives (5) Hypothyroidism: Continue Synthroid Subjective Reports headache and fevers are resolved. Dry cough is still about same. Sore throat only with cough No congestion, rhinorrhea Shortness of breath/occasional noisy breathing at baseline No dizziness or orthopnea Review of Systems Review of Systems: All systems reviewed and unremarkable except for mentioned above. Physical Exam Physical Exam: General: Well hydrated, no acute distress Eyes: PERRL, conjunctivae normal, EOM intact bilaterally ENMT: External ear and nose normal, oropharynx normal Neck: Normal visual inspection, No cervical lymphadenopathy Respiratory: Normal respiratory effort, no respiratory distress, lungs clear to auscultation, no crackles and no wheezes Cardiovascular: Pulse is RRR. S1 S2. No edema Gastrointestinal (Abdomen): Abdomen is not distended, soft, non-tender to palpation, no guarding, no palpable hepatosplenomegaly, normal bowel sounds Musculoskeletal: No cyanosis or clubbing, all extremities motor strength 5/5 Genitourinary: No CVA tenderness Neurologic: Alert and oriented x 3, No focal weakness, sensation grossly intact Psychiatric: Euthymic affect, no depressed affect Results & Data Vital Signs (Past 12 Hours) Vital Signs Temp Pulse Pulse Resp BP BP Pulse Ox 10/05/19 07:43 36.6 C 94 H 16 100/59 L 90 10/05/19 07:07 97 H 10/05/19 04:00 36.7 C 101 H 20 101/58 L 93 10/05/19 01:52 36.6 C 112 H 20 103/67 90 10/05/19 01:27 114 H 10/05/19 00:14 111 H 22 122/58 L 91 10/04/19 23:52 37.0 C 115 H 25 H 95/56 L 89 L 10/04/19 23:12 117 H 18 91 10/04/19 22:25 37.2 C 127 H 20 125/76 91 Laboratory Results Abnormal lab results 10/04/19 10/04/19 10/04/19 Range/Units 22:45 23:18 23:18 RBC 4.06 L (4.2-5.4) M/uL Hgb (12.0-16.0) g/dL MCHC 31.9 L (32-36) g/dL RDW Std Deviation 49.8 H (36.4-46.3) fL Immature Gran # (Auto) 0.04 H (0.00-0.02) K/uL Lymph # (Auto) (1.2-3.4) K/uL Centre # (Auto) 0.79 H (0.11-0.59) K/uL Chloride (98-107) mmol/L Carbon Dioxide (21-32) mmol/L Glucose 164 H (70-99) mg/dl POC Glucose (70-99) Hemoglobin A1c (4.5-5.6) % Calcium (8.5-10.1) mg/dl Magnesium (1.8-2.4) mg/dl Albumin 3.0 L (3.4-5.0) gm/dl Globulin 5.0 H (2.5-4.0) gm/dl Albumin/Globulin Ratio 0.6 L (0.9-2) Ur Specific [place] 1.044 H (1.000-1.030) Urine Protein 1+ H (Negative) Urine Glucose (UA) 3+ H (Negative) Urine Ketones Trace H (Negative) Urine Blood 2+ H (Negative) Urine WBC (Auto) 10-30 H (0-5) /hpf U Epithel Cells (Auto) >30 H (0-5) /lpf 10/05/19 10/05/19 10/05/19 Range/Units 01:51 04:51 04:52 RBC (4.2-5.4) M/uL Hgb (12.0-16.0) g/dL MCHC (32-36) g/dL RDW Std Deviation (36.4-46.3) fL Immature Gran # (Auto) (0.00-0.02) K/uL Lymph # (Auto) (1.2-3.4) K/uL Centre # (Auto) (0.11-0.59) K/uL Chloride (98-107) mmol/L Carbon Dioxide (21-32) mmol/L Glucose (70-99) mg/dl POC Glucose 199 H 331 H* 349 H* (70-99) Hemoglobin A1c (4.5-5.6) % Calcium (8.5-10.1) mg/dl Magnesium (1.8-2.4) mg/dl Albumin (3.4-5.0) gm/dl Globulin (2.5-4.0) gm/dl Albumin/Globulin Ratio (0.9-2) Ur Specific [place] (1.000-1.030) Urine Protein (Negative) Urine Glucose (UA) (Negative) Urine Ketones (Negative) Urine Blood (Negative) Urine WBC (Auto) (0-5) /hpf U Epithel Cells (Auto) (0-5) /lpf 10/05/19 10/05/19 10/05/19 Range/Units 07:13 07:13 07:13 RBC 3.88 L (4.2-5.4) M/uL Hgb 11.7 L (12.0-16.0) g/dL MCHC 31.2 L (32-36) g/dL RDW Std Deviation 51.1 H (36.4-46.3) fL Immature Gran # (Auto) 0.04 H (0.00-0.02) K/uL Lymph # (Auto) 0.64 L (1.2-3.4) K/uL Centre # (Auto) (0.11-0.59) K/uL Chloride 111 H (98-107) mmol/L Carbon Dioxide 17 L (21-32) mmol/L Glucose 291 H (70-99) mg/dl POC Glucose (70-99) Hemoglobin A1c 10.0 H (4.5-5.6) % Calcium 8.1 L (8.5-10.1) mg/dl Magnesium 2.5 H (1.8-2.4) mg/dl Albumin (3.4-5.0) gm/dl Globulin (2.5-4.0) gm/dl Albumin/Globulin Ratio (0.9-2) Ur Specific [place] (1.000-1.030) Urine Protein (Negative) Urine Glucose (UA) (Negative) Urine Ketones (Negative) Urine Blood (Negative) Urine WBC (Auto) (0-5) /hpf U Epithel Cells (Auto) (0-5) /lpf 10/05/19 Range/Units 07:31 RBC (4.2-5.4) M/uL Hgb (12.0-16.0) g/dL MCHC (32-36) g/dL RDW Std Deviation (36.4-46.3) fL Immature Gran # (Auto) (0.00-0.02) K/uL Lymph # (Auto) (1.2-3.4) K/uL Centre # (Auto) (0.11-0.59) K/uL Chloride (98-107) mmol/L Carbon Dioxide (21-32) mmol/L Glucose (70-99) mg/dl POC Glucose 265 H (70-99) Hemoglobin A1c (4.5-5.6) % Calcium (8.5-10.1) mg/dl Magnesium (1.8-2.4) mg/dl Albumin (3.4-5.0) gm/dl Globulin (2.5-4.0) gm/dl Albumin/Globulin Ratio (0.9-2) Ur Specific [place] (1.000-1.030) Urine Protein (Negative) Urine Glucose (UA) (Negative) Urine Ketones (Negative) Urine Blood (Negative) Urine WBC (Auto) (0-5) /hpf U Epithel Cells (Auto) (0-5) /lpf (1) Pneumonia Laterality: left Lung location: lower lobe of lung Pneumonia type: due to unspecified organism Qualified Code(s): J18.9 - Pneumonia, unspecified organism
[2019-10-05] MEDS ORDERED: PHARMACY GLYCEMIC MGMT CONSULT PRN (13:30)
[2019-10-05] MEDS ORDERED: INSULIN GLARGINE SOLOSTAR 100 UNITS/ML 3 ML PEN SC ONE (13:45)
--- NOTE | 2019-10-05 13:57 | Pharmacy Report ---
Glycemic Control Consultation - Date of Service October 05, 2019 - Scope Scope: Glycemic Pharmacist consulted by Dr Nguyen on 10/05/19 for glycemic control and to write orders per [facility] inpatient glycemic control protocol - Objective Weight: 89.3 kg Accuchecks BSG (last 24hrs): 10/04/19 10/05/19 10/05/19 23:18 01:51 04:51 Glucose 164 H POC Glucose 199 H 331 H* 10/05/19 10/05/19 10/05/19 04:52 07:13 07:31 Glucose 291 H POC Glucose 349 H* 265 H 10/05/19 11:31 Glucose POC Glucose 242 H Laboratory Data (last 24hrs): 10/04/19 10/05/19 23:18 07:13 Potassium 3.5 4.0 Carbon Dioxide 23 17 L Anion Gap 7.0 10.0 Creatinine 0.68 0.66 Est Cr Clr Drug Dosing 102.1 106.0 HbA1c: Hemoglobin A1c 10.0 % (4.5-5.6) H 10/05/19 07:13 - Recent Pertinent Medications Outpatient Anti-diabetic Regimen: * glipizide 10 mg BID, Tradjenta 5 mg daily, Jardiance 25 mg daily, Ozempic 1 mg SQ weekly The patient is currently receiving: * Basal insulin: Lantus 7 units every 12 hours * Correctional Insulin: Novolog Correction per scale ACHS Goal Range: Low 110 mg/dL - High 150 mg/dL Correction Factor: 30 mg/dL/unit * Prandial insulin: Per carb ratio of 1 unit per 10 grams CHO consumed * Oral Agents: Risk Factors for Insulin Resistance: * Steroids: dexamethasone 10 mg x 1 at 2335 on 10/04/19 * Infection: respiratory infection on Rocephin and doxycycline * Diet: T2DM - Assessment & Plan Assessment & Plan: ASSESSMENT: * Ms Fraser is a 44 y/o F with a PMH of uncontrolled T2DM on 3 orals + 1 injectable who presents with pulmonary infection. Patient given steroids in ER yesterday. * Patient started on weight-based stress of 2 Novolog plus low-dose Lantus. Pharmacy consulted at lunch. Blood sugar on admission was 199 mg/dL; at 0400 blood sugar 349 mg/dL. Breakfast blood sugar 265 mg/dL- lunch 242 mg/dL. * Due to administration of steroids, want 60/40 bolus/basal split. Utilize weight-based stress of 3 Novolog. * For Lantus, given additional 10 units to make 0.2 units/kg this morning. Weight based scale ongoing. * Pt is maintained on oral antidiabetic agents as an outpatient * Oral agents are not recommended for inpatient use d/t drug interactions, changing PO intake, and difficulty titrating for acute hyper/hypoglycemia. ADA recommends re-initiating outpatient oral agents 1-2 days prior to discharge if/when appropriate if they were held on admission. * Will hold oral agents for admission and utilize SQ basal bolus insulin regimen which is the recommended regimen for inpatient glycemic control. * Will initiate weight based insulin dosing for insulin maycol patient and titrate based on BSG trends. PLAN FOR INPATIENT GLYCEMIC CONTROL: * Holding outpatient oral diabetes medications * Basal insulin * Lantus 10 units SQ x 1 then 0-15 units SQ BID * Lantus 0 units if blood sugar under 140 mg/dL * Lantus 10 units if blood sugar 140-180 mg/dL * Lantus 15 units if blood sugar over 180 mg/dL * Bolus insulin * NovoLog per scale ACHS or Q6hrs while NPO * Goal Range: Low 110 mg/dL - High 150 mg/dL * Correction Factor: 20 mg/dL/unit * Nutritional / Prandial insulin per carb ratio of 1 unit per 6 grams CHO consumed * Please note that the plan above was derived based on current level of insulin resistance and hospital stress. These recommendations are appropriate for inpatient admission only. Plan of care upon discharge will need to be reassessed to avoid potential outpatient hypo/hyperglycemia. Thank you.
[2019-10-05] MEDS ORDERED: CONSULT PHARMACY STA (16:12)
[2019-10-05] MEDS ORDERED: GABAPENTIN 300 MG CAP PO SCH (17:00)
[2019-10-05] MEDS ORDERED: cefTRIAXone SODIUM 2,000 MG in DEXTROSE 5% 50 ML IV SCH (20:00)
--- NOTE | 2019-10-05 20:13 | Discharge Summary ---
Date of Service October 05, 2019 Admission HPI Per Admitting Provider 44-year-old female with past medical history significant for type 2 diabetes, hyperlipidemia, morbid obesity, trigeminal neuralgia, history of multinodular goiter. About 6 years ago, her thyroid nodule was compressing her airway. She has partial thyroidectomy done in [place], initially airway improved, but later again narrowed requiring few bronchoscopies to dilated her airway. Since then she generally has chronic shortness of breath from this narrowing airway. Since last Friday, she started feeling sick. She had some chest congestion, cough, it was dry cough and later she is having a constant headache,on and off fever and chills, not feeling well, so she came to the ER and she was in tachycardia, normal white count and somewhat tachypneic, saturating 89% on room air. Electrolytes are okay. Influenza A and B negative. Chest x-ray was showing probable mid left basilar opacity concerning for pneumonia. Currently resting comfortably and hemodynamically stable, saturating fine on oxygen. Has some headache. No dizziness, no blurred visions, no earache, no runny nose. Has some sore throat from coughing and she has chest pain and rib pain from coughing, her shortness of breath, nothing more than usual. No nausea, no vomiting, no abdominal pain, no diarrhea, no constipation, no black stools or blood in the stools. No hematuria or burning micturition, no swelling in the legs, no rash. She sleeps okay. Appetite is down for the last few days. Lives with her and otherwise she climbs steps and ambulated without any issues. Admission Exam Per Admitting Provider GENERAL: The patient is of moderate build, not in acute distress. VITAL SIGNS: Temperature 37, pulse 115, respiratory rate in 20s, blood pressure 95/56, oxygen 99% on room air. HEENT: No pallor, no icterus. Pupils equal, round, reactive to light. NECK: No JVD, no neck masses, no carotid bruits. CARDIOVASCULAR: S1, S2 heard. Tachycardia. No murmurs. RESPIRATORY SYSTEM: Normal AP diameter. No accessory muscle use. No wheezing, no crackles. ABDOMEN: Soft, bowel sounds present, nontender. No distention. CENTRAL NERVOUS SYSTEM: Cranial nerves II-XII grossly intact. Nonfocal. EXTREMITIES: No edema, no erythema. Principal Diagnosis Community Acquired Pneumonia Poorly controlled Diabetes mellitus type 2 Discharge Data Allergies Allergy/AdvReac Type Severity Reaction Status Date / Time No Known Allergies Allergy Unverified 10/04/19 23:48 Consultations 10/04/19 23:48 ED Decision to Admit Stat Hospital Course (1) Pneumonia: Cough and fever Chest x-ray showing probable left basilar opacity. No leukocytosis Was started on iv ceftriaxone and doxycycline Was admitted overnight. Has only got 1 day dose antibiotics Tonight patient insisted on leaving. Wants to be discharged against medical advise She reports no more fevers and stated she wants to sleep in her bed. Po Augmentin and doxycycline sent to patient's pharm Patient advised to follow up with her PCP, to call for an appointment as it is too late for us to help her with that (2) Prolonged QT interval: QTC on admission EKG was 627 Second EKG had QTC at 449 Avoid QT prolonging medications (3) Type 2 diabetes mellitus: Blood glucose is poorly controlled Hemoglobin A1c is 10 Informed patient she will need insulin to optimize glycemic control but she refused and wants to continue her home medication. At home patient is on Tradjenta, metformin and Ozempic Provided diabetes education. Discussed about risks of poor DM control. Follow up with PCP (4) Hypertension: Blood pressure stable Continue antihypertensives (5) Hypothyroidism: Continue Synthroid Total Time Total Time Spent Total Time Spent (In Minutes): 40 Total Time Includes: Examination of the Patient, Discharge Planning, Medication Reconciliation and Other (Counselling and education) Discharge Plan Discharge Items Patient Disposition: Home - Self-Care Reason For Visit: COUGH/FEVER Discharge Diagnosis: Community acquired pneumonia Condition on Discharge: Good Activity: Resume your previous activity Non-emergency contact: Primary Care Provider Call non-emergency contact if: you have any medication questions Follow-up/Referrals: Gricelda Ochoa DO [Primary Care Provider] - Diet: Carb Consistent or DM2 Addtl Attending Provider Instructions: Ms. Fraser You came to the hospital complaining about shortness of breath, cough, congestion and feeling ill with fevers and chills. You were evaluated and found to have left lung pneumonia You were started on IV antibiotics. However, tonight you insisted you want to be discharged AGAINST MEDICAL ADVICE. Oral antibiotics were sent to your pharmacy. Your blood glucose was poorly controlled. Hemoglobin A1c was 10. You were counseled on need to initiate insulin therapy. However, you refused this and wanted to continue your current antidiabetic medication You were provided basic diabetes education. You should follow-up with your primary care doctor Pending Studies at Discharge: Yes Studies:: Blood cultures Stand-Alone Forms: My [facility], Smoking Cessation Medications and DC Order Prescriptions: New amoxicillin-pot clavulanate [Augmentin XR] 1,000-62.5 mg tablet extended release 12 hr 1 tab PO BID 5 Days Qty: 10 RF: 0 doxycycline hyclate 100 mg tablet 100 mg PO BID 5 Days Qty: 10 RF: 0 Continued multivitamin Tablet 1 tab PO HS RF: 0 atorvastatin [Lipitor] 20 mg Tablet 20 mg PO HS RF: 0 glipizide 10 mg Tablet 10 mg PO BID RF: 0 cyanocobalamin (vitamin B-12) 1,000 mcg Tablet 1,000 mcg PO HS RF: 0 levothyroxine 50 mcg Tablet 50 mcg PO QAM RF: 0 metformin 1,000 mg Tablet 1,000 mg PO BID RF: 0 omeprazole 20 mg Capsule,Delayed Release(Dr/Ec) 20 mg PO BID RF: 0 fluticasone propionate [Flonase Allergy Relief] 50 mcg/actuation [place],Suspension 2 spray Intranasal DIRECTED PRN (Reason: Congestion) RF: 0 lisinopril 2.5 mg Tablet 2.5 mg PO HS RF: 0 [place]-3 Fish Oil 300-1,000 mg Capsule 1 cap PO QAM RF: 0 aspirin 81 mg Tablet,Delayed Release (Dr/Ec) 81 mg PO HS RF: 0 gabapentin 300 mg capsule 900 mg PO TID RF: 0 medroxyprogesterone 150 mg/mL syringe 150 mg IM Q3M RF: 0 Tradjenta 5 mg tablet 5 mg PO QAM RF: 0 Jardiance 25 mg tablet 25 mg PO QAM RF: 0 Ozempic 1 mg/dose (2 mg/1.5 mL) pen injector 1 mg subcut WK RF: 0 Discharge Orders: Discharge Order (Routine); Ordered 10/05/19 Ordered By: Evelyn Nguyen Admission Data Admit Date/Time: 10/05/19 00:29 Attending Provider: Evelyn Nguyen I. Admit Provider: Brad Miller Primary Care Provider: Gricelda Ochoa Other Providers: Brad Miller
[2019-10-05] MEDS ORDERED: ASPIRIN 81 MG ECTAB PO SCH (21:00)
[2019-10-05] MEDS ORDERED: ATORVASTATIN 20 MG TAB PO SCH (21:00)
[2019-10-05] MEDS ORDERED: CYANOCOBALAMIN 500 MCG TABLET (VITAMIN B-12) PO SCH (21:00)
[2019-10-05] MEDS ORDERED: MULTIVITAMIN TAB PO SCH (21:00)
== END 2019-10-05 21:00 | disposition home or self-care (01) ==
LOC: ED 22:19 → 2N 10-05 00:29 → INTOOBSV 10-05 00:29 → 2N 10-05 01:04

== ENCOUNTER 2022-10-24 08:52 | Observation (INO) ==
[2022-10-24] MEDS ORDERED: ASPIRIN 81 MG CHEW PO STA (09:22)
--- NOTE | 2022-10-24 09:28 | Emergency Department Note ---
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 She arrives for evaluation of worsening substernal chest discomfort. Initially offered GI cocktail which she declines. Pain is not overtly consistent with ACS but is quite concerning given substernal discomfort. EKG shows no ischemia nor clear evidence of pericarditis. Initial troponin is negative. Pain is on and off and difficult to say that it is actually been consistent for 6+ hours. Otherwise her abdominal exam is benign, she is breathing comfortably I do not feel that it is an intra-abdominal infection nor is there evidence of PE. Given findings hospitalist was consulted for further management. She was given aspirin initially. Prior Medical Record and Triage/Nursing Notes reviewed by Me Personally reviewed hospital record from admission 3 years ago for pneumonia. Differentials:ACS, PE, dissection, GERD, esophagitis, PUD, pneumonia, aspiration, musculoskeletal, pericarditis, myocarditis amongst multiple other pathologies considered. Vital Signs: reviewed and remarkable for no significant abnormalities Interventions: Aspirin p.o. Labs:Reviewed and remarkable for normal troponin along with essentially unrem arkable other laboratory work-up Imagin view chest x-ray reveals no acute infiltrates, congestive failure, enlarged heart or other concerning findings at this time. As interpreted by me EKG:Per My Interpretation: Indication substernal chest pain. Normal sinus rhythm 89 bpm and QTC of 433. There is no ectopy nor ischemia. When compared to an EKG of May 08, 2021 there is no significant change. Cardiac/Tele Monitoring: Cardiac Monitoring: An Order was placed for continuous cardiac monitoring. The monitor shows a rate of 80 with a normal sinus rhythm. Consults:Dr. Mayes of the [facility]ist service Plan: Disposition:Hospitalization. Condition: Good History of Present Illness:47-year-old female arrives for evaluation of chest pain. Patient notes substernal pressure-like squeezing chest pain. Started last evening after going to bed and going up stairs. Pain is intermittent and does seem to come and go. Currently pain is minimal. She did take all of her morning medications including aspirin. Nothing makes the symptoms better or worse at this point. She denies any new leg swelling, calf pain, abdominal pain, change in shortness of breath, back pain or other concerning signs or symptoms. She is had no recent syncope, palpitations, nausea, vomiting, fevers, chills, respiratory illness. She does have a history of trach. Patient also has a history of diabetes and hyperlipidemia. She denies any hypertensive history though is on lisinopril secondary to her diabetes. She has no history of CAD/cardiac issues but does note mother had several small heart attacks. Patient has not had any cardiac work-up recently. Past Medical History:Extensive past medical history please see chart. 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 Home Medications:As per impressions below. Allergies:Baclofen Vitals:Blood Pressure: 126/70, Pulse 93, RR 18, T 36.7C, O2 98% on Trach RA Physical Exam: GENERAL: Patient is anxious appearing and in minimal distress. EYES: No scleral icterus, unremarkable pupils. ENT: Mucous membranes moist, no nasal congestion. RESPIRATORY: No dyspnea. Clear to auscultation and equal bilaterally. No wheeze, no rhonchi. CARDIOVASCULAR: Regular rate and rhythm.No murmurs, rubs, gallops appreciated. GASTROINTESTINAL: Abdomen soft, non-tender, no peritonitis.Bowel sounds positive.No masses appreciated. EXTREMITIES: Normal motion all extremities, no cyanosis, no edema. NEUROLOGIC: Alert and oriented, no focal weakness SKIN: No rash, no jaundice, no diaphoresis. PSYCH: Appropriate GCS: 15 ED Course: Times/Reassessments: Patient is stable she has no significant change in her pain and she is in no distress. Mohamud Pa MD Past Med/Surg History Medical History Hypercholesteremia Hypertension Hypothyroidism Narrow pharyngeal airway Type 2 diabetes mellitus Surgical History History of - tubal ligation (06/12/13) History of surgery on right wrist Hx of tracheostomy Family History Mother Heart disease Hypertension Dyslipidemia Diabetes Grandfather (Maternal) Heart disease Social History Smoking Status: Never smoker Hx Alcohol Use: No Hx Substance Use: No Preferred Language: Guyanese Communication Ability: Effective Inside Sales Director Required: No Beliefs That Will Affect Care: None Current Living Situation: Spouse Feels Safe at Home: Yes Safety Concerns: Feels Safe At This Time Assistive Devices: Glasses Allergies Allergies Allergy/AdvReac Type Severity Reaction Status Date / Time baclofen AdvReac Unknown Unverified 09/08/21 09:48 Home Meds Home Medications Medication Instructions Recorded Confirmed atorvastatin 20 mg tablet (Lipitor) 40 mg PO HS 07/16/18 10/24/22 cyanocobalamin (vitamin B-12) 1,000 mcg PO Q2D 07/16/18 10/24/22 1,000 mcg tablet fluticasone propionate 50 2 spray intranasal DIRECTED PRN 07/16/18 10/24/22 mcg/actuation nasal Congestion spray,suspension (Flonase Allergy Relief) lisinopril 2.5 mg tablet 2.5 mg PO HS 07/16/18 10/24/22 metformin 1,000 mg tablet 1,000 mg PO BID 07/16/18 10/24/22 omeprazole 20 mg capsule,delayed 20 mg PO BID 07/16/18 10/24/22 release aspirin 81 mg tablet,delayed 81 mg PO QAM 04/19/19 10/24/22 release gabapentin 300 mg capsule 900 mg PO BID 04/19/19 10/24/22 semaglutide 1 mg/dose (2 mg/1.5 1 mg subcut WE 04/19/19 10/24/22 mL) subcutaneous pen injector (Ozempic) insulin glargine 100 unit/mL (3 40 unit subcut BID 05/08/21 10/24/22 mL) subcutaneous pen (Basaglar Stevie U-100 Insulin) levetiracetam 500 mg tablet 500 mg PO BID 10/24/22 10/24/22 medroxyprogesterone 150 mg/mL 1 mg IM Q90D 10/24/22 10/24/22 intramuscular syringe Previous Rx's Medication Instructions Recorded colchicine 0.6 mg tablet 0.6 mg PO BID #60 tabs 10/24/22 ibuprofen 600 mg tablet 600 mg PO Q8H #90 tabs 10/24/22 Results & Data (ED) Vital Signs Vital Signs - 24 hr 10/24/22 08:55 10/24/22 10:00 10/24/22 10:00 Temperature 36.7 C Temperature Source Oral Pulse Rate 93 H 93 H Pulse Rate from SpO2 Sensor Pulse Rhythm Regular Pulse Strength Normal Respiratory Rate 18 20 Respiratory Effort / Characteristics Non-Labored Spontaneous Respiratory Depth Normal Respiratory Pattern Regular Blood Pressure 126/70 128/82 Blood Pressure Mean 88 97 Blood Pressure Position Sitting Pulse Oximetry 98 Oxygen Delivery Method Trach Collar Oxygen Flow Rate 0 Sepsis Recent Fever Within 48 Hours No Sepsis New/Unexplained Change in Mental Status No Sepsis Action Taken by Nursing No Action Required 10/24/22 10:30 10/24/22 10:30 Temperature Temperature Source Pulse Rate 87 Pulse Rate from SpO2 Sensor 87 Pulse Rhythm Pulse Strength Respiratory Rate 18 Respiratory Effort / Characteristics Respiratory Depth Respiratory Pattern Blood Pressure 136/71 Blood Pressure Mean 92 Blood Pressure Position Pulse Oximetry 95 Oxygen Delivery Method Oxygen Flow Rate Sepsis Recent Fever Within 48 Hours Sepsis New/Unexplained Change in Mental Status Sepsis Action Taken by Nursing Laboratory Data 10/24/22 09:04 10/24/22 09:04 Lab Results 10/24/22 10/24/22 10/24/22 Range/Units 09:04 09:04 09:04 WBC 8.99 (4.8-10.8) K/ul RBC 3.94 (3.93-5.22) M/uL Hgb 11.3 L (12.0-16.0) g/dl Hct 34.9 (34.1-44.9) % MCV 88.6 (80.0-100.0) fL MCH 28.7 (25.0-34.0) pg MCHC 32.4 (32.0-36.0) g/dL RDW Std Deviation 45.6 (36.4-46.3) fL RDW Coeff of Carleen 14.2 (11.5-14.5) % Plt Count 301 (130-400) K/uL MPV 11.1 (9.4-12.3) fL Immature Gran % (Auto) 0.6 % Neut % (Auto) 43.6 % Lymph % (Auto) 45.4 % Burt % (Auto) 8.2 % Eos % (Auto) 1.9 % Baso % (Auto) 0.3 % Neut # (Auto) 3.92 (1.4-6.5) K/uL Lymph # (Auto) 4.08 H (1.2-3.4) K/uL Burt # (Auto) 0.74 (0.24-0.82) K/uL Eos # (Auto) 0.17 (0-0.50) K/uL Baso # (Auto) 0.03 (0-0.2) K/uL Immature Gran # (Auto) 0.05 H (0.00-0.02) K/uL Sodium 137 (136-145) mmol/L Potassium 3.8 (3.5-5.1) mmol/L Chloride 105 (98-107) mmol/L Carbon Dioxide 23 (21-32) mmol/L Anion Gap 9 (3-11) BUN 11 (6-23) mg/dl Creatinine 0.58 L (0.6-1.2) mg/dl Est Cr Clr Drug Dosing 115.9 ml/min Est GFR ( Amer) 125.4 ml/min Est GFR (Non-Af Amer) 108.2 ml/min BUN/Creatinine Ratio 19.0 (10-20) Glucose 216 H (70-99(Fasting)) mg/dl Estimat Average Glucose 283 mg/dl Hemoglobin A1c 11.5 H (4.5-5.6) % Calcium 9.1 (8.5-10.1) mg/dl Magnesium 1.5 L (1.7-2.4) mg/dl Troponin I High Sens 5.0 (0-14) pg/ml TSH (0.300-4.500) uIu/ml SARS-CoV-2 (PCR) (Negative) Influenza Type A (PCR) (Neg) Influenza Type B (PCR) (Neg) RSV (RT-PCR) (Neg) 10/24/22 10/24/22 Range/Units 09:04 09:28 WBC (4.8-10.8) K/ul RBC (3.93-5.22) M/uL Hgb (12.0-16.0) g/dl Hct (34.1-44.9) % MCV (80.0-100.0) fL MCH (25.0-34.0) pg MCHC (32.0-36.0) g/dL RDW Std Deviation (36.4-46.3) fL RDW Coeff of Carleen (11.5-14.5) % Plt Count (130-400) K/uL MPV (9.4-12.3) fL Immature Gran % (Auto) % Neut % (Auto) % Lymph % (Auto) % Burt % (Auto) % Eos % (Auto) % Baso % (Auto) % Neut # (Auto) (1.4-6.5) K/uL Lymph # (Auto) (1.2-3.4) K/uL Burt # (Auto) (0.24-0.82) K/uL Eos # (Auto) (0-0.50) K/uL Baso # (Auto) (0-0.2) K/uL Immature Gran # (Auto) (0.00-0.02) K/uL Sodium (136-145) mmol/L Potassium (3.5-5.1) mmol/L Chloride (98-107) mmol/L Carbon Dioxide (21-32) mmol/L Anion Gap (3-11) BUN (6-23) mg/dl Creatinine (0.6-1.2) mg/dl Est Cr Clr Drug Dosing ml/min Est GFR ( Amer) ml/min Est GFR (Non-Af Amer) ml/min BUN/Creatinine Ratio (10-20) Glucose (70-99(Fasting)) mg/dl Estimat Average Glucose mg/dl Hemoglobin A1c (4.5-5.6) % Calcium (8.5-10.1) mg/dl Magnesium (1.7-2.4) mg/dl Troponin I High Sens (0-14) pg/ml TSH 4.321 (0.300-4.500) uIu/ml SARS-CoV-2 (PCR) NEGATIVE (Negative) Influenza Type A (PCR) Negative (Neg) Influenza Type B (PCR) Negative (Neg) RSV (RT-PCR) Negative (Neg) Administered Medications Cyanocobalamin (Cyanocobalamin (B-12) 500 Mcg Tablet) 1,000 mcg PO Q48H MAIRANNA Stop: 11/23/22 14:29 Last Admin: 10/24/22 16:42 Dose: 1,000 mcg Documented By: AM Ibuprofen (Ibuprofen 600 Mg Tab) 600 mg PO Q8H MARIANNA Stop: 11/23/22 16:29 Last Admin: 10/24/22 17:16 Dose: 600 mg Documented By: AM Insulin Aspart (Insulin Aspart Per Unit) 0 units SC ACHS MARIANNA Stop: 11/23/22 13:52 Last Admin: 10/24/22 15:21 Dose: 5 units Documented By: AM Co-signed By: RLB Discontinued Medications Aspirin (Aspirin 81 Mg Chew) 162 mg PO NOW STA Stop: 10/24/22 09:23 Last Admin: 10/24/22 09:27 Dose: 162 mg Documented By: SHARA Atropine Sulfate (Atropine Sulfate 0.1 Mg/Ml 10ml Syr) Confirm Administered Dose 2 mg IV .STK-MED ONE Stop: 10/24/22 15:47 Last Admin: 10/24/22 16:22 Dose: Not Given Documented By: LOUIS Al Hydrox/Mg Hydrox/Simethicone 18 ml/ Lidocaine HCl 6 ml/ BARCODE IDENTIFIER 1 each 0 ml PO ONE ONE Stop: 10/24/22 11:14 Last Admin: 10/24/22 12:32 Dose: 24 ml Documented By: MRAIA FERNANDA Dobutamine HCl (Dobutamine Hcl 12.5 Mg/Ml 20 Ml Vial) Confirm Administered Dose 250 mg IV .STK-MED ONE Stop: 10/24/22 15:48 Last Admin: 10/24/22 16:22 Dose: 1 dose Documented By: LOUIS Metoprolol Tartrate (Metoprolol Tartrate 1 Mg/Ml Vial) Confirm Administered Dose 10 mg IV .STK-MED ONE Stop: 10/24/22 15:48 Last Admin: 10/24/22 16:22 Dose: 5 mg Documented By: LOUIS Nitroglycerin (Nitroglycerin 2% Ointment 30gm Tube) 1 inch EXT ONCE ONE Stop: 10/24/22 15:46 Last Admin: 10/24/22 15:40 Dose: 1 inch Documented By: AM Perflutren Lipid Microsphere (Perflutren Lipid Microsphere (Definity)) 2 ml IV ONCE ONE Stop: 10/24/22 16:24 Last Admin: 10/24/22 16:24 Dose: 2 ml Documented By: LOUIS Imaging Data Radiologist's Impression: Chest X-Ray 10/24/22 09:12 SINGLE VIEW CHEST CLINICAL HISTORY: Substernal chest pain. FINDINGS: 2 AP, portable, upright chest radiographs are compared to study dated 09/08/2021. A tracheostomy is in place. The cardiomediastinal silhouette is unremarkable. There are low lung volumes with bibasilar atelectasis. No airspace consolidation or large pleural effusion is identified. No pneumothorax is seen. The skeletal structures are osteopenic. The bony thorax is grossly intact. IMPRESSION: Low lung volumes and bibasilar atelectasis. No acute cardiopulmonary abnormality is seen. ACT 112: Negative or not required by law. Electronically signed by: Stevo Roman M.D. 10/24/2022 9:44 AM Discharge Plan Visit Data Chief Complaint: Chest Pain Stated Complaint: CHEST PAIN ED Provider: Mohamud Pa Discharge Problem: Substernal chest pain Patient Disposition: Admitted As Inpatient Condition: Good Discharge Instructions Interventions: ED Discharge Assessment Last Done: 10/24/22 13:36
--- NOTE | 2022-10-24 09:45 | XRay Report ---
SINGLE VIEW CHEST CLINICAL HISTORY: Substernal chest pain. FINDINGS: 2 AP, portable, upright chest radiographs are compared to study dated 09/08/2021. A tracheos sybil is in place. The cardiomediastinal silhouette is unremarkable. There are low lung volumes with b ibasilar atelectasis. No airspace consolidation or large pleural effusion is identified. No pneumotho rax is seen. The skeletal structures are osteopenic. The bony thorax is grossly intact. IMPRESSION: Low lung volumes and bibasilar atelectasis. No acute cardiopulmonary abnormality is seen. ACT 112: Negative or not required by law. Electronically signed by: Stevo Roman M.D. 10/24/2022 9:44 AM
[2022-10-24 09:47] LABS: Basophils # (auto) 0.03 K/uL (0-0.2); Basophils % (auto) 0.3 %; Eosinophils # (auto) 0.17 K/uL (0-0.50); Eosinophils % (auto) 1.9 %; Hematocrit (blood only) 34.9 % (34.1-44.9); Hemoglobin 11.3 g/dl (12.0-16.0); Immature Granulocytes # (auto) 0.05 K/uL (0.00-0.02); Immature Granulocytes % (auto) 0.6 %; Lymphocytes # (auto) 4.08 K/uL (1.2-3.4); Lymphocytes % (auto) 45.4 %; Mean Corpuscular Hemoglobin 28.7 pg (25.0-34.0); Mean Corpuscular Hgb Conc 32.4 g/dL (32.0-36.0); Mean Corpuscular Volume 88.6 fL (80.0-100.0); Mean Platelet Volume 11.1 fL (9.4-12.3); Monocytes # (auto) 0.74 K/uL (0.24-0.82); Monocytes % (auto) 8.2 %; Neutrophils # (auto) 3.92 K/uL (1.4-6.5); Neutrophils % (auto) 43.6 %; Platelet Count 301 K/uL (130-400); RDW Coefficient of Variation 14.2 % (11.5-14.5); RDW Standard Deviation 45.6 fL (36.4-46.3); Red Blood Count 3.94 M/uL (3.93-5.22); White Blood Count 8.99 K/ul (4.8-10.8)
[2022-10-24 09:54] LABS: Calcium 9.1 mg/dl (8.5-10.1); Creatinine Clr Calc Pharmacy 115.9 ml/min; Est GFR (African American) 125.4 ml/min; Est GFR (Non-African American) 108.2 ml/min; Magnesium 1.5 mg/dl (1.7-2.4); Potassium 3.8 mmol/L (3.5-5.1)
--- NOTE | 2022-10-24 10:24 | History & Physical Report ---
Date of Service October 24, 2022 Assessment & Plan (1) Chest pain: Plan: - Admit to tele for observation for r/o - Trend cardiac biomarkers, initial set was negative at 5.0, checking second set now. Possibly can get a stress test later today - Consult cardiology - EKG reviewed as above and personally reviewed by myself, no acute changes, no ST wave changes, no sign of ischemia - Check 2 D echo (2) Hypercholesteremia: Plan: - Hx of HLD, cholesterol panel from outpt reviewed by me: on 04/23/22 with elevated triglycerides, low HDL at 31, LDL 59. non HDL cholesterol 93. 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 Vee with head and neck surgery locally, last seen earlier this week 10/21/22 and tracheostomy was replaced in the office. Also follows with Dr. Rodriguez at [facility] (6) Obesity (BMI 30-39.9): Plan: - Diet and exercise to be encouraged throughout hospital stay, currently on Ozempic as above which should aid in weight loss -Patient is noted to be on Depo-Provera, can follow-up with outpatient provider regarding alternative contraceptive agent if patient would like with adverse effects being weight gain, worsening changes in glucose and increased insulin resistance. (7) Hypothyroidism: Plan: - Does not appear that the patient is on levothyroxine anymore per outpatient medication reconciliation and eval of multiple notes. Will check TSH and free T4 - last results are from 07/03/2021 as outpatient where TSH was 0.66. DVT ppx: - teds, scds, heparin subcu CODE: Full code Dispo: From home, admit for observation, likely to be in the hospital for less than 24 hours. A total of 75 minutes were spent with greater than 50% of that time face to face with the patient, personally reviewing all current laboratories, imaging studies, past medication reconciliation, outpatient chart review, and discussion with specialists to collaborate care for the patient with attending. Please see attending documentation for corrections and/or additions. History of Present Illness Chief Complaint: Chest pain Primary Care Provider: Lara Do PA-C This is a 47 yo F with PMHx of DM II, HLD, hx of vocal cord paralysis and subglottic stenosis s/p tracheostomy placement, interstitial emphysema, multinodular goiter with hx of partial thyroidectomy. Pts is present with her at bedside. Mrs. Fraser experienced chest pain starting last evening after she had eaten dinner, put away some laundry, watch television, and was sitting on the couch. It was substernal in nature, nonradiating, and felt like a pinching sensation. Denies heaviness, sharp stabbing pain, shortness of breath, lightheadedness or dizziness. She took 3 Tylenol in attempt to relieve the pain however did not help. She was able to fall asleep due to her tracheostomy and normal nighttime habits of having to get up and urinate, she only got 2 hours of sleep last night. Pt notes that he left leg is slightly weaker in general compared to her right leg after having a seizure after bronchoscopy in August 2021, which was during the hospital stay where tracheostomy was placed. She does not use any ambulatory device for assistance, denies any recent falls. She denies ever having a stroke in her past. This morning she took all of her routinely scheduled medications. She received full dose aspirin this morning in the ER, and afterwards her chest pain improved. At my time of visiting her she has no chest pain or any other complaints. Her mother has had multiple mild heart attacks, and her maternal grandfather in his 40s due to heart attack. Initial troponin is negative at 4.0, EKG does not show any ST wave changes or signs of ischemia. Chest x-ray is negative. Allergies Allergy/AdvReac Type Severity Reaction Status Date / Time baclofen AdvReac Unknown Unverified 09/08/21 09:48 Home Medications Medication Instructions Recorded Confirmed Type atorvastatin 20 mg tablet (Lipitor) 40 mg PO HS 07/16/18 10/24/22 History cyanocobalamin (vitamin B-12) 1,000 mcg PO Q2D 07/16/18 10/24/22 History 1,000 mcg tablet fluticasone propionate 50 2 spray intranasal DIRECTED PRN 07/16/18 10/24/22 History mcg/actuation nasal Congestion spray,suspension (Flonase Allergy Relief) lisinopril 2.5 mg tablet 2.5 mg PO HS 07/16/18 10/24/22 History metformin 1,000 mg tablet 1,000 mg PO BID 07/16/18 10/24/22 History omeprazole 20 mg capsule,delayed 20 mg PO BID 07/16/18 10/24/22 History release aspirin 81 mg tablet,delayed 81 mg PO QAM 04/19/19 10/24/22 History release gabapentin 300 mg capsule 900 mg PO BID 04/19/19 10/24/22 History semaglutide 1 mg/dose (2 mg/1.5 1 mg subcut WE 04/19/19 10/24/22 History mL) subcutaneous pen injector (Ozempic) insulin glargine 100 unit/mL (3 40 unit subcut BID 05/08/21 10/24/22 History mL) subcutaneous pen (Basaglar KwikPen U-100 Insulin) levetiracetam 500 mg tablet 500 mg PO BID 10/24/22 10/24/22 History medroxyprogesterone 150 mg/mL 1 mg IM Q90D 10/24/22 10/24/22 History intramuscular syringe Past Med/Surg History Medical History (Updated 10/24/22 @ 11:43 by Sneha Turner PA-C) Hypercholesteremia Hypertension Hypothyroidism Narrow pharyngeal airway Type 2 diabetes mellitus Surgical History (Updated 10/24/22 @ 11:23 by Sneha Turner PA-C) History of - tubal ligation (06/12/13) History of surgery on right wrist Hx of tracheostomy Family History (Updated 10/24/22 @ 11:22 by Sneha Turner PA-C) Mother Heart disease Hypertension Dyslipidemia Diabetes Grandfather (Maternal) Heart disease Social History Smoking Status: Never smoker Hx Alcohol Use: Yes Alcohol type: beer, wine and hard liquor Hx Substance Use: No Preferred Language: Namibian Communication Ability: Effective Vascular Technologist Sonographer Required: No Beliefs That Will Affect Care: None Current Living Situation: Spouse Feels Safe at Home: Yes Assistive Devices: Glasses Review of Systems Review of Systems: Constitutional: No fever, sweats or chills Eyes: No diplopia, no worsening or blurred vision ENT: normal hearing, no trouble swallowing Respiratory: No cough, sputum, dyspnea at rest or on exertion Cardiovascular: No chest pain, tightness or palpitations Abdomen: No pain, nausea, vomiting, diarrhea or constipation Musculoskeletal: No joint pain, calf pain, swelling Neurologic: As per HPI, no new weakness, numbness/tingling, or balance problems Psychiatric: No anxiety or depression Skin: No rash or itch Physical Exam Physical Exam: General: awake, alert, no apparent distress, + obese with BMI of 38.0 Head: Normocephalic, atraumatic ENT: PERRL, EOMI, no pharyngeal exudate, mucous membranes moist, + tracheostomy in place with speaking valve. Chest: Clear to auscultation, on room air, no adventitious breath sounds Cardiac: No chest pain with palpation of chest wall, Regular rate and rhythm, no murmur, no JVD, normal peripheral pulses, good capillary refill Abdominal: NABS x 4 quadrants, soft, nondistended, nontender to palpation, no rebound or guarding Extremities: Normal inspection, no peripheral edema or erythema, calfs nontender to palpation Psych: Normal mood and affect Neuro: AAO x 3, strength intact bilaterally and rated 5/5 but slightly weaker in the left leg with extension off the bed compared to right, also with diminished strength with left plantarflexion, no gross motor deficits, speech is clear, no peripheral sensory deficits Results & Data Results & Data ([facility]) Vital Signs (Past 12 Hours) Vital Signs Temp Pulse Resp BP Pulse Ox O2 Del Method O2 Flow Rate 10/24/22 10:00 93 H 20 10/24/22 10:00 128/82 10/24/22 08:55 36.7 C 93 H 18 126/70 98 Trach Collar 0 Laboratory Results 10/24/22 10/24/22 10/24/22 09:28 09:04 09:04 WBC 8.99 RBC 3.94 Hgb 11.3 L Hct 34.9 MCV 88.6 MCH 28.7 MCHC 32.4 RDW Std Deviation 45.6 RDW Coeff of Carleen 14.2 Plt Count 301 MPV 11.1 Immature Gran % (Auto) 0.6 Neut % (Auto) 43.6 Lymph % (Auto) 45.4 Garland % (Auto) 8.2 Eos % (Auto) 1.9 Baso % (Auto) 0.3 Neut # (Auto) 3.92 Lymph # (Auto) 4.08 H Garland # (Auto) 0.74 Eos # (Auto) 0.17 Baso # (Auto) 0.03 Immature Gran # (Auto) 0.05 H Sodium 137 Potassium 3.8 Chloride 105 Carbon Dioxide 23 Anion Gap 9 BUN 11 Creatinine 0.58 L Est Cr Clr Drug Dosing 115.9 Est GFR ( Amer) 125.4 Est GFR (Non-Af Amer) 108.2 BUN/Creatinine Ratio 19.0 Glucose 216 H Calcium 9.1 Magnesium 1.5 L Troponin I High Sens 5.0 SARS-CoV-2 (PCR) NEGATIVE Influenza Type A (PCR) Negative Influenza Type B (PCR) Negative RSV (RT-PCR) Negative Diagnostic Findings Chest X-Ray 10/24/22 09:12 SINGLE VIEW CHEST CLINICAL HISTORY: Substernal chest pain. FINDINGS: 2 AP, portable, upright chest radiographs are compared to study dated 09/08/2021. A tracheostomy is in place. The cardiomediastinal silhouette is unremarkable. There are low lung volumes with bibasilar atelectasis. No airspace consolidation or large pleural effusion is identified. No pneumothorax is seen. The skeletal structures are osteopenic. The bony thorax is grossly intact. IMPRESSION: Low lung volumes and bibasilar atelectasis. No acute cardiopulmonary abnormality is seen. ACT 112: Negative or not required by law. Electronically signed by: Stevo Roman M.D. 10/24/2022 9:44 AM ECG Additional Comments: 24-OCT-2022 09:02:16 [facility]-EDSTAT ROUTINE RETRIEVAL Normal sinus rhythm Normal ECG When compared with ECG of 08-MAY-2021 06:37, No significant change was found 25mm/s10mm/[id number]: [id number] by: REFERRED SELF Unconfirmed Vent. rate 89 BPM NM interval 150 ms QRS duration 80 ms QT/QTc 356/433 ms P-R-T axes 34 12 36
[2022-10-24 10:42] LABS: Influenza A virus by PCR Negative (Neg); Influenza B virus by PCR Negative (Neg); RSV by PCR Negative (Neg); SARS CoV2 RNA(COVID-19) Ceph NEGATIVE (Negative)
[2022-10-24] MEDS ORDERED: ALUMINUM/MAGNESIUM SUSP 18 ML, LIDOCAINE VISCOUS 2% SOLN 6 ML, BARCODE IDENTIFIER 1 EACH PO ONE (11:13)
[2022-10-24 13:06] LABS: Estimated Average Glucose 283 mg/dl; Hemoglobin A1C 11.5 % (4.5-5.6)
[2022-10-24] MEDS ORDERED: GLUCAGON FOR INJ 1 MG VIAL SQ PRN (13:53)
[2022-10-24] MEDS ORDERED: ACETAMINOPHEN 325 MG TAB PO PRN (13:53)
[2022-10-24] MEDS ORDERED: GLUCOSE 40% GEL 15 GM TUBE PO PRN (13:53)
[2022-10-24] MEDS ORDERED: CARBOHYDRATES FOR HYPOGLYCEMIA PO PRN (13:53)
[2022-10-24] MEDS ORDERED: FLUTICASONE PROPIONATE NA SPR 16 GM BTL PRN (13:53)
[2022-10-24] MEDS ORDERED: DEXTROSE 50% 50 ML SYRINGE IV PRN (13:53)
[2022-10-24] MEDS ORDERED: GLUCOSE 10 TAB/TUBE PO PRN (13:53)
[2022-10-24] MEDS ORDERED: CYANOCOBALAMIN (B-12) 500 MCG TABLET PO SCH (14:30)
[2022-10-24] MEDS: INSULIN ASPART PER UNIT SC SCH ×2 (15:21→18:03)
[2022-10-24] MEDS ORDERED: NITROGLYCERIN 2% OINTMENT 30GM TUBE EXT ONE (15:45)
[2022-10-24] MEDS ORDERED: ATROPINE SULFATE 0.1 MG/ML 10ML SYR IV ONE (15:46)
[2022-10-24] MEDS ORDERED: METOPROLOL TARTRATE 1 MG/ML VIAL IV ONE (15:47)
[2022-10-24] MEDS ORDERED: DOBUTamine HCL 12.5 MG/ML 20 ML VIAL IV ONE (15:47)
[2022-10-24] MEDS ORDERED: PERFLUTREN LIPID MICROSPHERE (DEFINITY) IV ONE (16:23)
[2022-10-24] MEDS ORDERED: IBUPROFEN 600 MG TAB PO SCH (16:30)
--- NOTE | 2022-10-24 16:35 | Cardiology Consultation ---
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 3 times a day along with colchicine 0.6 mg twice a day for 3 months No further cardiac test intervention is necessary at this time Okay to DC to home from a cardiac standpoint Recommend follow-up with cardiology in 1 month as an outpatient. History of Present Illness Reason for Consultation: Chest pain Requesting Physician: [facility] hospitalist group Attending Physician: Sera Mayes, History of Present Illness It was my pleasure to see Mrs. Fraser in cardiac consultation today October 24, 2022. She is a very pleasant 47-year-old woman who presented to [facility] on 10/24/2022 with complaints of chest pain. She states the pain started when she was simply watching television and sitting on the couch. She described as a pinching like sensation without other associated symptoms. She denied any positional change or reproducibility of the discomfort. She states it was constant. She took some Tylenol before going to bed without any significant improvement. She awoke after 2 hours of sleep and the pain was still there. She presented to the emergency department where her initial work- up was unremarkable with no ischemic EKG changes and negative troponins x2. Upon further questioning she states that she did have a viral upper respiratory tract infection a few weeks ago. Allergies Allergy/AdvReac Type Severity Reaction Status Date / Time baclofen AdvReac Unknown Unverified 09/08/21 09:48 Home Medications Medication Instructions Recorded Confirmed Type atorvastatin 20 mg tablet (Lipitor) 40 mg PO HS 07/16/18 10/24/22 History cyanocobalamin (vitamin B-12) 1,000 mcg PO Q2D 07/16/18 10/24/22 History 1,000 mcg tablet fluticasone propionate 50 2 spray intranasal DIRECTED PRN 07/16/18 10/24/22 History mcg/actuation nasal Congestion spray,suspension (Flonase Allergy Relief) lisinopril 2.5 mg tablet 2.5 mg PO HS 07/16/18 10/24/22 History metformin 1,000 mg tablet 1,000 mg PO BID 07/16/18 10/24/22 History omeprazole 20 mg capsule,delayed 20 mg PO BID 07/16/18 10/24/22 History release aspirin 81 mg tablet,delayed 81 mg PO QAM 04/19/19 10/24/22 History release gabapentin 300 mg capsule 900 mg PO BID 04/19/19 10/24/22 History semaglutide 1 mg/dose (2 mg/1.5 1 mg subcut WE 04/19/19 10/24/22 History mL) subcutaneous pen injector (Ozempic) insulin glargine 100 unit/mL (3 40 unit subcut BID 05/08/21 10/24/22 History mL) subcutaneous pen (Basaglar KwikPen U-100 Insulin) levetiracetam 500 mg tablet 500 mg PO BID 10/24/22 10/24/22 History medroxyprogesterone 150 mg/mL 1 mg IM Q90D 10/24/22 10/24/22 History intramuscular syringe Patient History Medical History Hypercholesteremia Hypertension Hypothyroidism Narrow pharyngeal airway Type 2 diabetes mellitus Surgical History History of - tubal ligation (06/12/13) History of surgery on right wrist Hx of tracheostomy Family History Mother Heart disease Hypertension Dyslipidemia Diabetes Grandfather (Maternal) Heart disease Social History Smoking Status: Never smoker Hx Alcohol Use: No Hx Substance Use: No Preferred Language: Lao Communication Ability: Effective [employer] Required: No Beliefs That Will Affect Care: None Current Living Situation: Spouse Feels Safe at Home: Yes Safety Concerns: Feels Safe At This Time Assistive Devices: Glasses Review of Systems Review of Systems: All systems reviewed & are unremarkable except as noted in HPI & below Physical Exam Physical Exam: Physical Exam: General: Awake, alert and oriented x 3. No acute distress. HEENT: Normocephalic, atraumatic. Pupils equal, round and reactive to light and accommodation. Extraocular muscles are intact. Anicteric sclera. Moist mucous membranes. Tracheostomy tube in place. Neck: No JVD. No bruit. Cardiovascular: Regular. No S-4. Normal S-1 and S-2. No S-3. No murmurs, rubs or gallops. Pulmonary: Clear to auscultation bilaterally. No rales, rhonchi, or wheezing. Abdomen: Bowel sounds x 4, soft. No rebound, guarding or tenderness. No organomegaly. Extremities: No clubbing, cyanosis or edema. +2 pedal pulses bilaterally. Skin: Warm and dry. Results & Data ([facility]) Vital Signs (Past 12 Hours) Vital Signs Temp Pulse Pulse Resp BP BP Pulse Ox 10/24/22 14:33 10/24/22 13:59 36.5 C 89 20 123/79 97 10/24/22 10:30 87 18 95 10/24/22 10:30 136/71 10/24/22 10:00 93 H 20 10/24/22 10:00 128/82 10/24/22 08:55 36.7 C 93 H 18 126/70 98 O2 Del Method O2 Flow Rate 10/24/22 14:33 Room Air, Trach Collar 10/24/22 13:59 Room Air, Trach Collar 10/24/22 10:30 10/24/22 10:30 10/24/22 10:00 10/24/22 10:00 10/24/22 08:55 Trach Collar 0
[2022-10-24] MEDS ORDERED: COLCHICINE 0.6 MG TAB PO SCH (17:00)
--- NOTE | 2022-10-24 17:15 | Discharge Summary ---
Discharge Summary Date of Service October 24, 2022 Admission HPI Per Admitting Provider This is a 47 yo F with PMHx of DM II, HLD, hx of vocal cord paralysis and subglottic stenosis s/p tracheostomy placement, interstitial emphysema, multinodular goiter with hx of partial thyroidectomy. Pts is present with her at bedside. Mrs. Fraser experienced chest pain starting last evening after she had eaten dinner, put away some laundry, watch television, and was sitting on the couch. It was substernal in nature, nonradiating, and felt like a pinching sensation. Denies heaviness, sharp stabbing pain, shortness of breath, lightheadedness or dizziness. She took 3 Tylenol in attempt to relieve the pain however did not help. She was able to fall asleep due to her tracheostomy and normal nighttime habits of having to get up and urinate, she only got 2 hours of sleep last night. Pt notes that he left leg is slightly weaker in general compared to her right leg after having a seizure after bronchoscopy in August 2021, which was during the hospital stay where tracheostomy was placed. She does not use any ambulatory device for assistance, denies any recent falls. She denies ever having a stroke in her past. This morning she took all of her routinely scheduled medications. She received full dose aspirin this morning in the ER, and afterwards her chest pain improved. At my time of visiting her she has no chest pain or any other co mplaints. Her mother has had multiple mild heart attacks, and her maternal grandfather in his 40s due to heart attack. Initial troponin is negative at 4.0, EKG does not show any ST wave changes or signs of ischemia. Chest x-ray is negative. Principal Dx & Hospital Course #1 = Principal Diagnosis (1) Chest pain: - Admit to tele for observation for r/o - Trend cardiac biomarkers, initial set was negative at 5.0, checking second set now. Possibly can get a stress test later today - Consult cardiology - EKG reviewed as above and personally reviewed by myself, no acute changes, no ST wave changes, no sign of ischemia - Check 2 D echo (2) Hypercholesteremia: - Hx of HLD, cholesterol panel from outpt reviewed by me: on 04/23/22 with elevated triglycerides, low HDL at 31, LDL 59. non HDL cholesterol 93. 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 Vee with head and neck surgery locally, last seen earlier this week 10/21/22 and tracheostomy was replaced in the office. Also follows with Dr. Rodriguez at [facility] (6) Obesity (BMI 30-39.9): - Diet and exercise to be encouraged throughout hospital stay, currently on Ozempic as above which should aid in weight loss -Patient is noted to be on Depo-Provera, can follow-up with outpatient provider regarding alternative contraceptive agent if patient would like with adverse effects being weight gain, worsening changes in glucose and increased insulin resistance. (7) Hypothyroidism: - Does not appear that the patient is on levothyroxine anymore per outpatient medication reconciliation and eval of multiple notes. Will check TSH and free T4 - last results are from 07/03/2021 as outpatient where TSH was 0.66. DVT ppx: - teds, scds, heparin subcu CODE: Full code Dispo: From home, admit for observation, likely to be in the hospital for less than 24 hours. A total of 75 minutes were spent with greater than 50% of that time face to face with the patient, personally reviewing all current laboratories, imaging studies, past medication reconciliation, outpatient chart review, and discussion with specialists to collaborate care for the patient with attending. Please see attending documentation for corrections and/or additions. Updated Medication List Medication Instructions Recorded Confirmed Type atorvastatin 20 mg tablet (Lipitor) 40 mg PO HS 07/16/18 10/24/22 History cyanocobalamin (vitamin B-12) 1,000 mcg PO Q2D 07/16/18 10/24/22 History 1,000 mcg tablet fluticasone propionate 50 2 spray intranasal DIRECTED PRN 07/16/18 10/24/22 History mcg/actuation nasal Congestion spray,suspension (Flonase Allergy Relief) lisinopril 2.5 mg tablet 2.5 mg PO HS 07/16/18 10/24/22 History metformin 1,000 mg tablet 1,000 mg PO BID 07/16/18 10/24/22 History omeprazole 20 mg capsule,delayed 20 mg PO BID 07/16/18 10/24/22 History release aspirin 81 mg tablet,delayed 81 mg PO QAM 04/19/19 10/24/22 History release gabapentin 300 mg capsule 900 mg PO BID 04/19/19 10/24/22 History semaglutide 1 mg/dose (2 mg/1.5 1 mg subcut WE 04/19/19 10/24/22 History mL) subcutaneous pen injector (Ozempic) insulin glargine 100 unit/mL (3 40 unit subcut BID 05/08/21 10/24/22 History mL) subcutaneous pen (Basaglkaitlin CamargoPen U-100 Insulin) colchicine 0.6 mg tablet 0.6 mg PO BID #60 tabs 10/24/22 Rx ibuprofen 600 mg tablet 600 mg PO Q8H #90 tabs 10/24/22 Rx levetiracetam 500 mg tablet 500 mg PO BID 10/24/22 10/24/22 History medroxyprogesterone 150 mg/mL 1 mg IM Q90D 10/24/22 10/24/22 History intramuscular syringe Hospital Stay Data Consultations 10/24/22 10:16 ED Decision to Admit Stat 10/24/22 11:18 Consult Cardiology Routine Pending Results Patient Have Any Pending Studies at Discharge: No Discharge Instructions Given to Patient (Per Discharging Provider) Ms. Fraser, You were admitted for chest pain and acute coronary syndrome (heart attack) was ruled out. You underwent a dobutamine stress echocardiogram which was negative for decreased blood flow to the heart (negative test is good). However, on the resting heart ultrasound, there was a small loculated pericardial effusion (fluid in the sac around the heart) that may be the source of your pain. To treat this you are being given Ibuprofen and Colchicine to take for a total of 3 months. Periodic blood work should be done every few weeks to monitor you kidney function while take this higher dose of Ibuprofen. Your primary care provider may order this on follow-up. Please see your PCP within one week of discharge from the hospital. As an as colchicine may cause additional gastrointestinal side effects such as diarrhea. Please notify your cardiology provider, Dr. Purcell, if you are unable to tolerate this medication as alterna tives may be provided. Your hemoglobin A1C was also checked here and was 11.5 with a goal of <7. Please follow-up closely with your glycemic pharmacist or PCP regarding optimizing your treatment plan or diet/lifestyle in order to meet that goal. It was a pleasure taking care of you! Please call if you have any questions or problems. You can reach a [facility] hospitalist on duty at [facility] 24 hours a day by calling [phone]. Take care of yourself. Sera Mayes, DO [facility]
[2022-10-24] MEDS ORDERED: INSULIN ASPART PER UNIT SC STA (17:43)
[2022-10-24] MEDS ORDERED: LANTUS PER UNIT CHARGE SQ SCH (21:00)
[2022-10-24] MEDS ORDERED: levETIRAcetam 500 MG TAB PO SCH (21:00)
[2022-10-24] MEDS ORDERED: ATORVASTATIN 40 MG TAB PO SCH (21:00)
[2022-10-24] MEDS ORDERED: GABAPENTIN 300 MG CAP PO SCH (21:00)
[2022-10-24] MEDS ORDERED: PANTOprazole 40 MG TAB PO SCH (21:00)
[2022-10-24] MEDS ORDERED: lisinopril 2.5 MG TAB PO SCH (21:00)
[2022-10-25] MEDS ORDERED: ENOXAPARIN INJ 40 MG/0.4 ML SYR SQ SCH (09:00)
[2022-10-25] MEDS ORDERED: ASPIRIN 81 MG ECTAB PO SCH (09:00)
--- NOTE | 2022-10-25 10:50 | Electrocardiogram Report ---
Test Reason : Blood Pressure : / mmHG Vent. Rate : 089 BPM Atrial Rate : 089 BPM P-R Int : 150 ms QRS Dur : 080 ms QT Int : 356 ms P-R-T Axes : 034 012 036 degrees QTc Int : 433 ms Normal sinus rhythm Normal ECG When compared with ECG of 08-MAY-2021 06:37, No significant change was found Confirmed by Tremayne Alvarado ([id number]) on 10/25/2022 10:50:36 AM Referred By: REFERRED SELF Confirmed By:Tremayne Alvarado
--- NOTE | 2022-10-25 11:26 | Electrocardiogram Report ---
Test Reason : Blood Pressure : / mmHG Vent. Rate : 097 BPM Atrial Rate : 097 BPM P-R Int : 156 ms QRS Dur : 078 ms QT Int : 350 ms P-R-T Axes : 033 009 032 degrees QTc Int : 444 ms Normal sinus rhythm Low voltage QRS Cannot rule out Anterior infarct , age undetermined Abnormal ECG When compared with ECG of 24-OCT-2022 09:02, No significant change was found Confirmed by Tremayne Alvarado ([id number]) on 10/25/2022 11:26:26 AM Referred By: REFERRED SELF Confirmed By:Tremayne Alvarado
== END 2022-10-24 18:18 | disposition home or self-care (01) ==
LOC: ED 08:52 → 4W 08:52